=== PATIENT | male | born 1965 | race Caucasian/White ===

== ENCOUNTER 2017-11-07 23:04 | Inpatient (IN) | payer BC, MEDICAID ==
[~2017-11-07] VITALS: Ht 185.4 cm; Wt 134.0 kg
[~2017-11-07 23:04] MED LIST: CARI350T29; ESOM10SU; FLUT1DIS22; IBUP-727; LAMO100T83; MONT10TA21; ZOLP10TA; [UNRECOGNIZED DRUG - CODE]
[2017-11-07] MEDS ORDERED: SODIUM CHLORIDE 0.9% 1L BAG IV* STA (23:17)
[2017-11-07] MEDS ORDERED: ACETAMINOPHEN 500 MG TAB PO STA (23:19)
[2017-11-07 23:53] LABS: BASOPHILS % 0.6 % (0.0-2.0); EOSINOPHILS % 0.6 % (0.0-7.0); HEMATOCRIT 38.8 % (42.0-52.0); HEMOGLOBIN 12.6 g/dl (14.0-18.0); LYMPHOCYTES # 0.6 10^3/ul (0.8-2.9); LYMPHOCYTES % 12.5 % (15.0-51.0); MEAN CORPUSCULAR HEMOGLOBIN 29.5 pg (29.0-33.0); MEAN CORPUSCULAR HGB CONC 32.5 g/dl (32.0-37.0); MEAN CORPUSCULAR VOLUME 90.9 fl (82.0-101.0); MEAN PLATELET VOLUME 10.3 fl (7.4-10.4); MONOCYTE # 0.9 10^3/ul (0.3-0.9); MONOCYTES % 19.1 % (0.0-11.0); NEUTROPHIL # 3.3 10^3/ul (1.6-7.5); PLATELET COUNT 158 10^3/UL (140-415); RED BLOOD COUNT 4.27 10^6/ul (4.70-6.10); RED CELL DISTRIBUTION WIDTH 12.6 % (11.5-14.5); WHITE BLOOD COUNT 4.9 10^3/ul (4.8-10.8)
[2017-11-08] VITALS (11 sets, daily range): BP systolic 95–127; BP diastolic 62–83; PULSE 102–145; RESP 20–21; TEMP 99.3; Ht 185.4 cm; Wt 134.0 kg
[2017-11-08 00:20] LABS: ALANINE AMINOTRANSFERASE 32 IU/L (13-69); ALBUMIN 3.8 g/dl (3.3-4.9); ALBUMIN/GLOBULIN RATIO 1.35; ALKALINE PHOSPHATASE 85 IU/L (42-121); ANION GAP 16 (8-16); ASPARTATE AMINO TRANSFERASE 22 IU/L (15-46); BILIRUBIN,INDIRECT 0.6 mg/dl (0-1.1); BILIRUBIN,TOTAL 0.6 mg/dl (0.2-1.3); BLOOD UREA NITROGEN 19 mg/dl (7-20); CALCIUM 8.6 mg/dl (8.4-10.2); CARBON DIOXIDE 25 mmol/L (21-31); CHLORIDE 103 mmol/L (97-110); CREATININE 0.98 mg/dl (0.61-1.24); GLUCOSE 122 mg/dl (70-220); POTASSIUM 4.2 mmol/L (3.5-5.1); SODIUM 140 mmol/L (135-144); TOTAL PROTEIN 6.6 g/dl (6.1-8.1)
[2017-11-08 00:43] LABS: TROPONIN-I < 0.012 ng/ml (0.00-0.12)
[2017-11-08 00:47] LABS: INR 1.04; PROTIME 13.7 Sec (11.9-14.9); PT RATIO 1.1
[2017-11-08 00:48] LABS: PARTIAL THROMBOPLASTIN TIME 30.3 Sec (25.0-35.0)
--- NOTE | 2017-11-08 01:03 | RADRPT ---
PROCEDURE: XR Chest. CLINICAL INDICATION: Shortness of breath. TECHNIQUE: AP Portable chest. COMPARISON: No pertinent prior examinations were submitted for comparison. FINDINGS: The cardiomediastinal silhouette is normal. The lungs are clear. The osseous structures are unrema rkable. IMPRESSION: No acute findings. RPTAT: HIKT .Edward Maxwell MD, MD Date Time Electronically viewed and signed by .Edward Maxwell MD, MD on 11/08/2017 01:03 .T/
[2017-11-08 02:10] LABS: ADD UMIC YES; UR ASCORBIC ACID NEGATIVE (NEGATIVE); UR BILIRUBIN (Dip) NEGATIVE (NEGATIVE); UR BLOOD (Dip) 1+ mg/dL (NEGATIVE); UR CLARITY CLEAR (CLEAR); UR COLOR YELLOW (YELLOW); UR GLUCOSE (Dip) NEGATIVE (NEGATIVE); UR KETONES (Dip) TRACE mg/dL (NEGATIVE); UR LEUKOCYTE ESTERASE (Dip) NEGATIVE Leu/ul (NEGATIVE); UR NITRITE (Dip) NEGATIVE (NEGATIVE); UR RBC 1 /HPF (0-5); UR SPECIFIC GRAVITY (Dip) 1.019 (1.003-1.030); UR TOTAL PROTEIN (Dip) NEGATIVE (NEGATIVE); UR UROBILINOGEN (Dip) NEGATIVE (NEGATIVE)
[2017-11-08] MEDS ORDERED: PIPER-TAZO 3.375 GM IV (PMX) 50 ML IV ONE (02:30)
[2017-11-08] MEDS ORDERED: BISACODYL (EC) 5 MG TAB PO PRN (02:30)
[2017-11-08] MEDS ORDERED: ACETAMINOPHEN 325 MG TAB PO PRN (02:30)
[2017-11-08] MEDS ORDERED: NACL 0.9% 3 ML SYG IV SCH (02:30)
[2017-11-08] MEDS ORDERED: DOCUSATE SODIUM 100 MG CAP PO PRN (02:30)
[2017-11-08] MEDS ORDERED: ONDANSETRON 4 MG TAB PO PRN (02:30)
[2017-11-08] MEDS ORDERED: NITROGLYCERIN (SL) 0.4 MG TAB SL PRN (02:30)
--- NOTE | 2017-11-08 02:55 | ERD ---
ER Documentation Chief Complaint Chief Complaint pt reports cough, fever for a couple of days HPI This is a 52-year-old male initially brought in by ambulance for cough and fever for a couple of days. Cough is mildly productive. Found to be in atrial fibrillation with rapid ventricular response. Patient has history of. Denies chest pain. Denies nausea vomiting fevers or chills. Denies diaphoresis. Denies any other current complaints. Patient states possible noncompliance with his medication regimen as he does not remember when it is at this time. ROS All systems reviewed and are negative except as per history of present illness. Medications Home Meds Reported Medications Fluticasone/Salmeterol (Advair 100-50 Diskus) 1 Disk W/Dev Disk.w.dev 05/06/11 Esomeprazole Mag Trihydrate (Nexium Packet) 10 Mg Suspdr.pkt 05/06/11 Carisoprodol* (Carisoprodol*) 350 Mg Tablet 05/06/11 Ibuprofen (Motrin) 600 Mg Tablet 05/06/11 Zolpidem Tartrate* (Ambien*) 10 Mg Tablet 05/06/11 Lamotrigine* (Lamictal*) 100 Mg Tablet 05/06/11 Montelukast Sodium* (Singulair*) 10 Mg Tablet 05/06/11 Hydrocodone Bit/Acetaminophen (Hydrocodone-Apap 10-750 Tablet) 1 Tab Tablet 05/06/11 Allergies Allergies: Coded Allergies: No Known Drug Allergy (Verified Allergy, Mild, 05/06/11) PMhx/Soc History of Surgery: No (eye surgeries) Anesthesia Reaction: No Hx Neurological Disorder: No Hx Respiratory Disorders: Yes (ASTHMA) Hx Cardiac Disorders: Yes (HTN) Hx Psychiatric Problems: No Hx Miscellaneous Medical Probl: Yes Hx Alcohol Use: No Hx Substance Use: No Hx Tobacco Use: No Smoking Status: Never smoker Physical Exam Vitals Vital Signs Date Time Temp Pulse Resp B/P Pulse Ox O2 Delivery O2 Flow Rate FiO2 11/08/17 01:29 98.9 138 20 100/79 96 Nasal Cannula 2.0 11/08/17 00:35 98.7 124 21 107/74 98 Nasal Cannula 2.0 11/07/17 23:44 136 16 120/77 97 Nasal Cannula 2.0 11/07/17 23:42 Nasal Cannula 2 11/07/17 23:14 101.7 60 24 132/64 95 Physical Exam Const: [] Head: Atraumatic Eyes: Normal Conjunctiva ENT: Normal External Ears, Nose and Mouth. Neck: Full range of motion..~ No meningismus. Resp: Clear to auscultation bilaterally Cardio: Regular rate and rhythm, no murmurs Abd: Soft, non tender, non distended. Normal bowel sounds Skin: No petechiae or rashes Back: No midline or flank tenderness Ext: No cyanosis, or edema Neur: Awake and alert Psych: Normal Mood and Affect Result Diagram: 11/07/17 2330 11/07/17 233 Results 24 hrs Laboratory Tests Test 11/07/17 23:30 11/08/17 01:25 White Blood Count 4.910^3/ul Red Blood Count 4.2710^6/ul Hemoglobin 12.6g/dl Hematocrit 38.8% Mean Corpuscular Volume 90.9fl Mean Corpuscular Hemoglobin 29.5pg Mean Corpuscular Hemoglobin Concent 32.5g/dl Red Cell Distribution Width 12.6% Platelet Count 47509^3/UL Mean Platelet Volume 10.3fl Neutrophils % 67.0% Lymphocytes % 12.5% Monocytes % 19.1% Eosinophils % 0.6% Basophils % 0.6% Nucleated Red Blood Cells % 0.0/100WBC Neutrophils # 3.310^3/ul Lymphocytes # 0.610^3/ul Monocytes # 0.910^3/ul Eosinophils # 0.010^3/ul Basophils # 0.010^3/ul Nucleated Red Blood Cells # 0.010^3/ul Prothrombin Time 13.7Sec Prothrombin Time Ratio 1.1 INR International Normalized Ratio 1.04 Activated Partial Thromboplast Time 30.3Sec Sodium Level 140mmol/L Potassium Level 4.2mmol/L Chloride Level 103mmol/L Carbon Dioxide Level 25mmol/L Anion Gap 16 Blood Urea Nitrogen 19mg/dl Creatinine 0.98mg/dl Glucose Level 122mg/dl Lactic Acid Level 1.6mmol/L Calcium Level 8.6mg/dl Total Bilirubin 0.6mg/dl Direct Bilirubin 0.00mg/dl Indirect Bilirubin 0.6mg/dl Aspartate Amino Transf (AST/SGOT) 22IU/L Alanine Aminotransferase (ALT/SGPT) 32IU/L Alkaline Phosphatase 85IU/L Troponin I < 0.012ng/ml Total Protein 6.6g/dl Albumin 3.8g/dl Globulin 2.80g/dl Albumin/Globulin Ratio 1.35 Urine Color YELLOW Urine Clarity CLEAR Urine pH 6.0 Urine Specific [place] 1.019 Urine Ketones TRACEmg/dL Urine Nitrite NEGATIVEmg/dL Urine Bilirubin NEGATIVEmg/dL Urine Urobilinogen NEGATIVEmg/dL Urine Leukocyte Esterase NEGATIVELeu/ul Urine Microscopic RBC 1/HPF Urine Microscopic WBC 0/HPF Urine Hemoglobin 1+mg/dL Urine Glucose NEGATIVEmg/dL Urine Total Protein NEGATIVEmg/dl Current Medications Medications (Trade) Dose Ordered Sig/Chacho Route PRN Reason Start Time Stop Time Status Last Admin Dose Admin Sodium Chloride (NS) 4,150 ml BOLUS OVER 2 HOURS STAT IV* 11/07/17 23:17 11/07/17 23:18 DC 11/07/17 23:29 Acetaminophen (Tylenol Tab) 1,000 mg ONCE STAT PO 11/07/17 23:19 11/07/17 23:21 DC 11/07/17 23:29 Diltiazem HCl (Cardizem Iv) 20 mg ONCE ONCE IV 11/08/17 00:00 11/08/17 00:01 DC 11/07/17 23:37 IV Flush (NS 3 ml) 3 ml PER PROTOCOL IV 11/08/17 02:30 Ondansetron HCl (Zofran Tab) 4 mg Q6H PRN PO NAUSEA AND/OR VOMITING 11/08/17 02:30 Nitroglycerin (Nitroglycerin (Sl Tab) 0.4 Mg) 1 tab Q5M PRN SL CHEST PAIN 11/08/17 02:30 Acetaminophen (Tylenol Tab) 650 mg Q6H PRN PO PAIN LEVEL 1-3 OR FEVER 11/08/17 02:30 Docusate Sodium (Colace) 100 mg Q12H PRN PO CONSTIPATION 11/08/17 02:30 Bisacodyl (Dulcolax) 5 mg DAILY PRN PO CONSTIPATION 11/08/17 02:30 Enoxaparin Sodium 40 mg 40 mg DAILY SC 11/08/17 09:00 Piperacillin Sod/ Tazobactam Sod (Zosyn 3.375gm/ 50 ml (Pmx)) 50 ml @ 100 mls/hr ONCE ONCE IV 11/08/17 02:30 11/08/17 02:59 Hydrocodone Bit/ Homatropine Methylb (Hycodan Liquid) 5 ml ONCE ONCE PO 11/08/17 03:00 11/08/17 03:01 Procedures/MDM EKG: Rate/Rhythm: Variable rate, variable intervals QRS, ST, T-waves: [No changes consistent w/ acute ischemia] Impression: [No evidence of ischemia or arrhythmia] Pression: Atrial fibrillation with rapid ventricular response Chest X-ray 1V Interpreted by me: Soft Tissue: No acute abnormalities Bones: No acute abnormalities Mediastinum/Cardiac Silhouette/Lungs: [No acute abnormalities] Critical Care: Time: 45 minutes Treatments/Evaluations: Close monitoring and treatment of unstable vital signs, cardiorespiratory, and neurologic status, while maintaining tight balance of fluid, respiratory, and cardiac interventions. This time is independent of any separately billable procedural time Patient's symptoms are concerning for cardiac cause will require inpatient workup and continuous monitoring. Further w/u for ischemia, arrhythmia, PE or dissection will be deferred to the inpatient team. Accepting Care Team: Current data and ongoing care discussed. Time: 2 AM Primary Provider: Dr. Alvarez Consulting: [XOXOXO] Outstanding Data: none Departure Diagnosis: Primary Impression: Atrial fibrillation with RVR Condition: Serious KAE HERRERA Nov 08, 2017 02:55
[2017-11-08] MEDS ORDERED: HYDROCODONE/HOMATROPINE 5ML CUP PO ONE ×2 (03:00→06:00)
[2017-11-08] MEDS ORDERED: DILTIAZEM 25 MG INJ IV ONE ×2 (03:00)
[2017-11-08 03:38] LABS: CREATINE KINASE 388 IU/L (23-200)
[2017-11-08 03:59] LABS: CK-MB 1.11 ng/ml (0.0-2.4); TROPONIN-I < 0.012 ng/ml (0.00-0.12)
[2017-11-08] MEDS ORDERED: LEVALBUTEROL (NEB) 1.25 MG/0.5 ML AMP HHN ONE ×2 (05:00→06:00)
[2017-11-08] MEDS ORDERED: DIGOXIN 500 MCG INJ IV ONE (05:00)
[2017-11-08] MEDS ORDERED: METHYLPREDNISOLONE 125 MG INJ IV ONE (05:30)
[2017-11-08 06:13] LABS: BASOPHILS % 0.6 % (0.0-2.0); EOSINOPHILS % 0.3 % (0.0-7.0); HEMATOCRIT 36.1 % (42.0-52.0); HEMOGLOBIN 11.7 g/dl (14.0-18.0); LYMPHOCYTES # 0.7 10^3/ul (0.8-2.9); LYMPHOCYTES % 22.2 % (15.0-51.0); MEAN CORPUSCULAR HEMOGLOBIN 30.1 pg (29.0-33.0); MEAN CORPUSCULAR HGB CONC 32.4 g/dl (32.0-37.0); MEAN CORPUSCULAR VOLUME 92.8 fl (82.0-101.0); MEAN PLATELET VOLUME 10.4 fl (7.4-10.4); MONOCYTE # 0.6 10^3/ul (0.3-0.9); MONOCYTES % 18.8 % (0.0-11.0); NEUTROPHIL # 1.9 10^3/ul (1.6-7.5); NEUTROPHILS % 57.8 % (39.0-77.0); PLATELET COUNT 125 10^3/UL (140-415); RED BLOOD COUNT 3.89 10^6/ul (4.70-6.10); RED CELL DISTRIBUTION WIDTH 12.8 % (11.5-14.5); WHITE BLOOD COUNT 3.3 10^3/ul (4.8-10.8)
[2017-11-08] MEDS ORDERED: KETOROLAC 30 MG INJ IV STA (06:55)
[2017-11-08] MEDS ORDERED: CARI350T29 PO (07:07)
[2017-11-08] MEDS ORDERED: LAMO100T PO (07:08)
[2017-11-08] MEDS ORDERED: HYDR-902 PO (07:08)
[2017-11-08] MEDS ORDERED: AMLO1CAP10 PO (07:09)
[2017-11-08] MEDS ORDERED: MELO-210 PO (07:09)
[2017-11-08] MEDS ORDERED: ALBU18HF INHALATION (07:10)
[2017-11-08 07:21] LABS: ALBUMIN 3.3 g/dl (3.3-4.9); ALBUMIN/GLOBULIN RATIO 1.37; BILIRUBIN,INDIRECT 0.5 mg/dl (0-1.1); BILIRUBIN,TOTAL 0.5 mg/dl (0.2-1.3); CALCIUM 7.6 mg/dl (8.4-10.2); CHOL/HDL RATIO 2.1 RATIO; CREATININE 0.87 mg/dl (0.61-1.24); TOTAL PROTEIN 5.7 g/dl (6.1-8.1)
[2017-11-08] MEDS ORDERED: DILTIAZEM-D5W 125MG/125ML DRIP 125 ML IV STA (07:22)
[2017-11-08 08:49] LABS: THYROID STIMULATING HORMONE 0.711 MIU/L (0.465-4.680)
[2017-11-08] MEDS: LEVALBUTEROL (NEB) 0.63 MG/3 ML AMP HHN SCH ×4 (08:54→20:01)
[2017-11-08] MEDS ORDERED: ENOXAPARIN 40 MG/0.4 ML SYG SC SCH (09:00)
[2017-11-08 09:40] LABS: CREATINE KINASE 501 IU/L (23-200)
[2017-11-08 09:57] LABS: CK-MB 1.43 ng/ml (0.0-2.4); TROPONIN-I < 0.012 ng/ml (0.00-0.12)
[2017-11-08] MEDS ORDERED: PROVENTIL HFA 6.7GM INHALER INH PRN (10:00)
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
[2017-11-08] MEDS: AMOXICILLIN/CLAV 875 MG TAB PO SCH ×2 (10:17→20:14)
--- NOTE | 2017-11-08 10:24 | QN ---
Documentation Comment Observation Note: Time: 4 hours Family Hx: Negative for diabetes Evaluation: Multiple exams showed improving symptoms and no evidence of clinical decompensation. ORALIA CHURCHILL MD Nov 08, 2017 10:24
--- NOTE | 2017-11-08 13:31 | CONS ---
DATE OF ADMISSION: 11/08/2017 DATE OF CONSULTATION: 11/08/2017 DATE OF CONSULTATION: 11/08/2017 REASON FOR CONSULTATION: Atrial fibrillation with rapid ventricular response, associated chest pain , palpitations. REQUESTING PHYSICIAN: Dr. Coffman from the hospitalist service. HISTORY OF PRESENT ILLNESS: Mr. Hernandez is a 52-year-old male with a history of hypertension, dyslip idemia, chronic back pain, who initially presented with complaints of shortness of breath and cough for the last 4-5 days. The patient initially stated he was having palpitations like his heart was j umping out of his chest. Upon arrival in the emergency department, temperature of 101.7, blood pres sure 132/64, pulse 60, respiratory rate 24, saturating 95%. The patient's labs revealed a white cou nt of 4.9, hemoglobin 12.6, platelet count of 158, sodium 140, potassium 4.2, creatinine 0.9, BUN 19 , INR of 1.0. UA negative. The patient underwent a chest x-ray revealing no acute findings. The p atient's electrocardiogram revealed atrial fibrillation with rapid ventricular response, rate of 180 , normal axis and intervals with nonspecific ST-T abnormalities diffusely. The patient was subseque ntly admitted to the floor, and since admit to the floor, he has been in a-fib in the 100-115 range. Denies ongoing chest pain. PAST MEDICAL HISTORY: As above in HPI. MEDICATIONS CURRENTLY IN HOSPITAL: Prednisone, albuterol, Lovenox, Xopenex, diltiazem. ALLERGIES: NO KNOWN DRUG ALLERGIES. SOCIAL HISTORY: No tobacco, ETOH or illicit drug use. FAMILY HISTORY: No history of sudden cardiac or early CAD. REVIEW OF SYSTEMS: As above in HPI. CONSTITUTIONAL: Positive fevers, chills. PULMONARY: Shortness of breath. CARDIOVASCULAR: Atrial fibrillation with rapid ventricular response. GASTROINTESTINAL: No vomiting. GENITOURINARY: No hematuria. MUSCULOSKELETAL: Degenerative joint disease. PSYCHIATRIC: The patient denies depression. NEUROLOGIC: No documented history of CVA. PHYSICAL EXAMINATION VITAL SIGNS: Temperature of 98.1, blood pressure most recently 113/67, pulse 114, satting 95% on 2 liters. GENERAL: The patient is alert, awake, complaining of shortness of breath, cough. NECK: JVP approximately 9 cm of water. CHEST: Fair air movement throughout, with expiratory wheezing. HEART: Irregularly irregular, I/ systolic murmur, tachycardic. ABDOMEN: Positive bowel sounds, soft. EXTREMITIES: No edema, 1+ pulses bilaterally, posterior tibial. LABORATORY DATA: As above in HPI. Most recently from today: Sodium 141, potassium 4.0, creatinine 0.8, BUN 13. Troponin negative x3. LDL 50, HDL 51, white cell count 3.3, hemoglobin 11.7, platele t count of 125. IMAGING STUDIES: As above in HPI. No further imaging studies for my review at this time. ELECTROCARDIOGRAM: As above in HPI. No further electrocardiograms for my review at this time. IMPRESSION: 1. Atrial fibrillation with rapid ventricular response. 2. Palpitations secondary to atrial fibrillation with rapid ventricular response. 3. Chest pain, possibly also related to the patient's atrial fibrillation with rapid ventricular re sponse. Will trend troponins. 4. Hypertension. 5. Dyslipidemia. 6. Upper respiratory infection. 7. Fever. RECOMMENDATIONS: 1. At this time, will maintain the patient on telemetry monitoring to follow rhythm and rate contro l closely. 2. Will cover patient with anticoagulation at this time. 3. We will start the patient on calcium channel jenniffer to improve heart rate control p.o., and giv e digoxin load. 4. Continue the patient's antibiotics and steroids and bronchodilators. 5. Check a 2D echocardiogram to further assess this patient's ejection fraction, wall motion or any major valve abnormalities, and will check the TSH to be sure subclinical hyperthyroidism is not con tributing to any bouts of tachyarrhythmia. Thank you for allowing me to take part in the care of this patient. I will continue to follow him sánchez pulido closely with you with further recommendations to be made as the patient progresses through his i npatient hospital course. Dictated By: BRAYAN GARNETT/RACHEL Conf#: [id number] DID#: [id number] CC: CIRO COFFMAN MD;*EndCC*
[2017-11-08] MEDS: DIGOXIN 500 MCG INJ IV SCH ×2 (14:10→19:34)
[2017-11-08] MEDS: DILTIAZEM 30 MG TAB PO SCH ×2 (14:10→21:11)
--- NOTE | 2017-11-08 15:06 | PN ---
Date/Time of Note Date/Time of Note DATE: 11/08/17 TIME: 15:06 Assessment/Plan VTE Prophylaxis VTE Prophylaxis Intervention: SCD's Lines/Catheters IV Catheter Type (from Nrs): Peripheral IV Assessment/Plan Chief Complaint/Hosp Course Assessment and plan 1. Atrial fibrillation with rapid ventricular response. Continues to be on Cardizem drip. Follow-up with senior ui web developer recommendations. Continue telemetry monitoring. Of note patient did have echocardiogram with ejection fraction seen at 55% with normal diastolic dysfunction. 2. Asthma with exacerbation. Continue on O2 and titrate down as tolerated. Continue bronchodilators 3. Suspect upper respiratory infection. Continue antibiotics for now. 4. Hypertension. Will monitor and provide with antihypertensives as needed. 5. Dyslipidemia. Stable at present. Will monitor. 6. Suspect psychiatric disorder. Continue on Lamictal Disposition plan: Continue Cardizem drip. monitor on telemetry. follow up with senior ui web developer otmmy Discussed plan of care with Dr. Krishnamurthy Problems: Subjective 24 Hr Interval Summary Free Text/Dictation reports no chest pain., states he has some dyspnea Exam/Review of Systems Vital Signs Vitals Vital Signs Date Time Temp Pulse Resp B/P Pulse Ox O2 Delivery O2 Flow Rate FiO2 11/08/17 13:31 3.0 32 11/08/17 13:29 122 22 96 Nasal Cannula 11/08/17 11:17 98.1 113/67 Exam Constitutional: alert, oriented Psych: nl mood/affect Head: normocephalic Eyes: nl conjunctiva Neck: non-tender, supple Respiratory: other (little wheezing ) Cardiovascular: irregular rhythm Gastrointestinal: non-tender, soft Musculoskeletal: nl extremities to inspection, nl gait and stance Neurological: TECHNICAL STAFF ASSISTANT II-XII intact, nl mental status, nl speech Results Result Diagram: 11/08/17 0538 11/08/17 0540 Results 24 hrs Laboratory Tests Test 11/07/17 23:30 11/08/17 01:25 11/08/17 02:49 11/08/17 05:38 White Blood Count 4.9 3.3 #L Red Blood Count 4.27 L 3.89 L Hemoglobin 12.6 L 11.7 L Hematocrit 38.8 L 36.1 L Mean Corpuscular Volume 90.9 92.8 Mean Corpuscular Hemoglobin 29.5 30.1 Mean Corpuscular Hemoglobin Concent 32.5 32.4 Red Cell Distribution Width 12.6 12.8 Platelet Count 158 125 #L Mean Platelet Volume 10.3 10.4 Neutrophils % 67.0 57.8 Lymphocytes % 12.5 L 22.2 Monocytes % 19.1 H 18.8 H Eosinophils % 0.6 0.3 Basophils % 0.6 0.6 Nucleated Red Blood Cells % 0.0 0.0 Neutrophils # 3.3 1.9 Lymphocytes # 0.6 L 0.7 L Monocytes # 0.9 0.6 Eosinophils # 0.0 0.0 Basophils # 0.0 0.0 Nucleated Red Blood Cells # 0.0 0.0 Prothrombin Time 13.7 Prothrombin Time Ratio 1.1 INR International Normalized Ratio 1.04 Activated Partial Thromboplast Time 30.3 Sodium Level 140 Potassium Level 4.2 Chloride Level 103 Carbon Dioxide Level 25 Anion Gap 16 Blood Urea Nitrogen 19 Creatinine 0.98 Glucose Level 122 Lactic Acid Level 1.6 1.0 1.0 Calcium Level 8.6 Total Bilirubin 0.6 Direct Bilirubin 0.00 Indirect Bilirubin 0.6 Aspartate Amino Transf (AST/SGOT) 22 Alanine Aminotransferase (ALT/SGPT) 32 Alkaline Phosphatase 85 Troponin I < 0.012 < 0.012 Total Protein 6.6 Albumin 3.8 Globulin 2.80 Albumin/Globulin Ratio 1.35 Urine Color YELLOW Urine Clarity CLEAR Urine pH 6.0 Urine Specific [place] 1.019 Urine Ketones TRACE A Urine Nitrite NEGATIVE Urine Bilirubin NEGATIVE Urine Urobilinogen NEGATIVE Urine Leukocyte Esterase NEGATIVE Urine Microscopic RBC 1 Urine Microscopic WBC 0 Urine Hemoglobin 1+ H Urine Glucose NEGATIVE Urine Total Protein NEGATIVE Creatine Kinase 388 H Creatine Kinase Index 0.3 Creatinine Kinase MB (Mass) 1.11 Hemoglobin A1c 5.6 Test 11/08/17 05:40 11/08/17 09:10 Sodium Level 141 Potassium Level 4.0 Chloride Level 108 Carbon Dioxide Level 22 Anion Gap 15 Blood Urea Nitrogen 13 Creatinine 0.87 Glucose Level 106 Calcium Level 7.6 L Magnesium Level 2.0 Total Bilirubin 0.5 Direct Bilirubin 0.00 Indirect Bilirubin 0.5 Aspartate Amino Transf (AST/SGOT) 21 Alanine Aminotransferase (ALT/SGPT) 33 Alkaline Phosphatase 79 Total Protein 5.7 L Albumin 3.3 Globulin 2.40 Albumin/Globulin Ratio 1.37 Triglycerides Level 45 Cholesterol Level 110 LDL Cholesterol, Calculated 50 HDL Cholesterol 51 Cholesterol/HDL Ratio 2.1 Thyroid Stimulating Hormone (TSH) 0.684 Creatine Kinase 501 H Creatine Kinase Index 0.3 Creatinine Kinase MB (Mass) 1.43 Troponin I < 0.012 Medications Medications Current Medications Ondansetron HCl (Zofran Tab) 4 mg Q6H PRN PO NAUSEA AND/OR VOMITING; Start at 02:30 Nitroglycerin (Nitroglycerin (Sl Tab) 0.4 Mg) 1 tab Q5M PRN SL CHEST PAIN; Start 11/08/17 at 02:30 Acetaminophen (Tylenol Tab) 650 mg Q6H PRN PO PAIN LEVEL 1-3 OR FEVER; Start 11/08/17 at 02:30 Docusate Sodium (Colace) 100 mg Q12H PRN PO CONSTIPATION; Start 11/08/17 at 02 :30 Bisacodyl (Dulcolax) 5 mg DAILY PRN PO CONSTIPATION; Start 11/08/17 at 02:30 Amoxicillin/ Clavulanate Potassium (Augmentin) 875 mg BID PO Last administered on 11/08/17 10:17; Admin Dose 875 MG; Start 11/08/17 at 09:00 Prednisone (Prednisone) 60 mg DAILY PO ; Start 11/09/17 at 09:00 Albuterol (Proventil (O.r. Use Only)) 2 puff Q6H PRN INH SHORTNESS OF BREATH; Start 11/08/17 at 10:00 Lamotrigine (Lamictal) 225 mg QHS PO ; Start 11/08/17 at 21:00 Influenza Virus Vaccine (Fluzone) 0.5 ml ONCE ONCE IM* ; Start 11/09/17 at 09: 00; Stop 11/09/17 at 09:01 Enoxaparin Sodium (Lovenox) 100 mg Q12 SC ; Start 11/08/17 at 21:00 Diltiazem HCl (Cardizem) 30 mg Q8 PO Last administered on 11/08/17 14:10; Admin Dose 30 MG; Start 11/08/17 at 14:00 Digoxin (Digoxin) 250 mcg Q6H IV Last administered on 11/08/17 14:10; Admin Dose 250 MCG; Start 11/08/17 at 13:30; Stop 11/09/17 at 01:31 SANDIP KANG Nov 08, 2017 15:06
--- NOTE | 2017-11-08 15:07 | RADRPT ---
Echocardiogram Report Patient Name: CHEO DALY Gender: Male Date: 1965 Study Date: 08-Nov-2017 Meter/Relay Craftsman: OLIVER Location: [id number] Ref. Physician: CIRO COFFMAN Quality: Good Procedures: Transthoracic echocardiogram with complete 2D, M-Mode, and doppler examination. Indications: Atrial Fibrillation. 2D/M Mode Doppler Measurement Value Normal Ranges Measurement Value Normal Ranges AoR Diam MM 3.8 cm LULI Vmax 2.4 cm2 ACS MM 2.3 cm LULI VTI 2.4 cm2 LA/Ao MM 0.9 AV Mean Elvis 1.2 m/sec LA Dimen MM 3.6 cm AV Mean PG 6.5 mmHg LVIDd 2D 5.4 3.5 - 5.6 cm AV Peak Elvis 1.6 m/sec LVIDs 2D 3.7 2.1 - 4.1 cm AV Peak PG 9.6 mmHg LVPWd 2D 1.1 0.6 - 1.1 cm AV VTI 27.9 cm IVSd 2D 1.1 0.6 - 1.1 cm LVOT Peak Elvis 1.1 m/sec AoR Diam 2D 3.8 2.0 - 3.7 cm LVOT Peak PG 4.6 mmHg EDV 2D 143.6 cm3 MV E Peak Elvis 1.4 m/sec ESV 2D 50.1 cm3 MV A Peak Elvis 0.4 m/sec EF 2D 60.0 50.0 - 65.0 % MV E/A 3.4 LVOT Diam 2.1 cm MV Decel Time 136 msec MV Decel [place] 10 MV E/A 3.4 TR Peak Elvis 2.3 m/sec TR Peak PG 21.7 mmHg RVSP 30.0 mmHg RA Pressure 8.0 Findings Left Ventricle: Normal left ventricular systolic function. Normal left ventricular cavity size. Left ventricular wall thickness upper limits of normal. Ejection fraction is visually estimated at 55 %. Abnormal Diastolic Function. Right Ventricle: Normal right ventricular size. Normal right ventricular systolic function. Left Atrium: There is mild enlargement of left atrium. Right Atrium: The right atrium is normal in size. Mitral Valve: Normal appearance of the mitral valve. There is trace to mild mitral valve regurgitation. Aortic Valve: Normal appearance of the aortic valve. No significant aortic stenosis or insufficiency. Tricuspid Valve: Normal appearance of the tricuspid valve. Estimated peak PA systolic pressure 30 mmHg. There is trace tricuspid regurgitation. Pericardium: Normal pericardium with no significant pericardial effusion. Aorta: Normal aortic root. IVC: Dilated IVC with respiratory collapse consistent with elevated right atrial pressure. Conclusions 1.Normal left ventricular systolic function. Normal left ventricular cavity size. Left ventricular wall thickness upper limits of normal. Ejection fraction is visually estimated at 55 %. Abnormal Diastolic Function. 2.There is mild enlargement of left atrium. 3.Normal appearance of the mitral valve. There is trace to mild mitral valve regurgitation. 4.Normal appearance of the tricuspid valve. Estimated peak PA systolic pressure 30 mmHg. There is trace tricuspid regurgitation. Electronically Signed By: Salazar Marc 08-Nov-2017 15:07:02 0800 Patient Name: CHEO DALY Study Date: 08-Nov-2017 [id number]
[2017-11-08] MEDS ORDERED: ALBUTEROL HFA 8 GM INHALER INH PRN ×2 (18:00)
[2017-11-08] MEDS: PROMETHAZINE/CODEINE 5ML CUP PO PRN (18:38)
[2017-11-08] MEDS: ENOXAPARIN 100 MG/ML SYG SC SCH (20:17)
[2017-11-08] MEDS: LAMOTRIGINE 100 MG TAB PO SCH (21:12)
[2017-11-08] MEDS: DILTIAZEM-D5W 125MG/125ML DRIP 125 ML IV SCH (23:58)
[2017-11-09] VITALS (15 sets, daily range): BP systolic 90–120; BP diastolic 54–89; PULSE 91–142; RESP 18–21
[2017-11-09] MEDS: PROMETHAZINE/CODEINE 5ML CUP PO PRN ×5 (00:08→21:03)
[2017-11-09] MEDS: LEVALBUTEROL (NEB) 0.63 MG/3 ML AMP HHN SCH ×6 (01:00→20:03)
[2017-11-09] MEDS: morphine 2 MG INJ IV PRN ×4 (01:10→23:44)
[2017-11-09] MEDS: DIGOXIN 500 MCG INJ IV SCH (01:30)
[2017-11-09] MEDS: DILTIAZEM 30 MG TAB PO SCH ×3 (05:16→21:01)
[2017-11-09] MEDS ORDERED: INFLUENZA VIRUS VACCINE 0.5 ML SYG IM* ONE (09:00)
[2017-11-09 09:10] LABS: BASOPHILS % 0.2 % (0.0-2.0); HEMATOCRIT 37.5 % (42.0-52.0); LYMPHOCYTES # 0.8 10^3/ul (0.8-2.9); LYMPHOCYTES % 17.5 % (15.0-51.0); MEAN CORPUSCULAR HEMOGLOBIN 29.3 pg (29.0-33.0); MEAN CORPUSCULAR VOLUME 91.7 fl (82.0-101.0); MEAN PLATELET VOLUME 9.9 fl (7.4-10.4); MONOCYTE # 0.7 10^3/ul (0.3-0.9); MONOCYTES % 15.7 % (0.0-11.0); NEUTROPHIL # 2.9 10^3/ul (1.6-7.5); NEUTROPHILS % 66.1 % (39.0-77.0); PLATELET COUNT 155 10^3/UL (140-415); RED BLOOD COUNT 4.09 10^6/ul (4.70-6.10); RED CELL DISTRIBUTION WIDTH 12.7 % (11.5-14.5); WHITE BLOOD COUNT 4.4 10^3/ul (4.8-10.8)
[2017-11-09] MEDS: AMOXICILLIN/CLAV 875 MG TAB PO SCH ×2 (09:24→21:00)
[2017-11-09] MEDS: predniSONE 20 MG TAB PO SCH (09:24)
[2017-11-09] MEDS: DILTIAZEM-D5W 125MG/125ML DRIP 125 ML IV SCH ×2 (09:25→16:24)
[2017-11-09] MEDS: ENOXAPARIN 100 MG/ML SYG SC SCH ×2 (09:28→21:02)
[2017-11-09 09:40] LABS: CALCIUM 8.8 mg/dl (8.4-10.2); CREATININE 0.83 mg/dl (0.61-1.24); POTASSIUM 3.9 mmol/L (3.5-5.1)
[2017-11-09 09:50] LABS: CHOL/HDL RATIO 2.3 RATIO
--- NOTE | 2017-11-09 11:04 | CONS ---
Date/Time of Note Date/Time of Note DATE: 11/09/17 TIME: 11:03 Assessment/Plan Assessment/Plan Additional Assessment/Plan 1. Atrial fibrillation with rapid ventricular response- rate much better now, con't Med optimization. 2. Palpitations secondary to atrial fibrillation with rapid ventricular response- improved with therapy. 3. Chest pain, possibly also related to the patient's atrial fibrillation with rapid ventricular response. Will trend troponins- stable. 4. Hypertension- well Rx, con't diuresis. 5. Dyslipidemia. 6. Upper respiratory infection- on anti-Bx, better now. 7. Fever. Consultation Date/Type/Reason Admit Date/Time Nov 08, 2017 at 01:52 Initial Consult Date 24 HR Interval Summary Free Text/Dictation Better overall- good urine output - rate controlled - will monitor now. ROS: No fever, no chills, no nausea, no vomiting, no diarrhea/constipation No recent weight changes No chest pain, no PND, no orthopnea + SOB No dizziness, blurred vision No thirst, no heat or cold intolerance Exam/Review of Systems Vital Signs Vitals Vital Signs Date Time Temp Pulse Resp B/P Pulse Ox O2 Delivery O2 Flow Rate FiO2 11/09/17 09:12 96 24 97 Nasal Cannula 3.0 11/09/17 07:15 98.0 110/77 11/09/17 04:52 21 Intake and Output 11/08/17 11/08/17 11/09/17 15:00 23:00 07:00 Intake Total 25 ml 910 ml 495 ml Output Total 1600 ml Balance -1575 ml 910 ml 495 ml Exam General: WN/WD/NAD, AOx 3 HEENT: Unicetric/atraumatic/EOMI (follows commands) NECK: JVD elevated, no thyromegaly Lymph: no lymphadenopathy HEART: irregular with no S3, II/ systolic murmur at apex LUNGS: Coarse sounds ABD: soft, NT, ND, +BS : Intact Neuro: non focal SKIN: chronic changes EXT: trace edema Results Result Diagram: 11/09/17 0842 11/09/17 0842 Results 24 hrs Laboratory Tests Test 11/08/17 17:34 11/09/17 00:34 11/09/17 08:42 Troponin I < 0.012 < 0.012 White Blood Count 4.4 #L Red Blood Count 4.09 L Hemoglobin 12.0 L Hematocrit 37.5 L Mean Corpuscular Volume 91.7 Mean Corpuscular Hemoglobin 29.3 Mean Corpuscular Hemoglobin Concent 32.0 Red Cell Distribution Width 12.7 Platelet Count 155 # Mean Platelet Volume 9.9 Neutrophils % 66.1 Lymphocytes % 17.5 Monocytes % 15.7 H Eosinophils % 0.0 Basophils % 0.2 Nucleated Red Blood Cells % 0.0 Neutrophils # 2.9 Lymphocytes # 0.8 Monocytes # 0.7 Eosinophils # 0.0 Basophils # 0.0 Nucleated Red Blood Cells # 0.0 Sodium Level 141 Potassium Level 3.9 Chloride Level 106 Carbon Dioxide Level 26 Anion Gap 13 Blood Urea Nitrogen 10 Creatinine 0.83 Glucose Level 116 Calcium Level 8.8 Triglycerides Level 73 Cholesterol Level 118 LDL Cholesterol, Calculated 53 HDL Cholesterol 50 Cholesterol/HDL Ratio 2.3 Medications Medications Current Medications Ondansetron HCl (Zofran Tab) 4 mg Q6H PRN PO NAUSEA AND/OR VOMITING; Start at 02:30 Nitroglycerin (Nitroglycerin (Sl Tab) 0.4 Mg) 1 tab Q5M PRN SL CHEST PAIN Last administered on 11/08/17 23:57; Admin Dose 1 TAB; Start 11/08/17 at 02:30 Acetaminophen (Tylenol Tab) 650 mg Q6H PRN PO PAIN LEVEL 1-3 OR FEVER; Start 11/08/17 at 02:30 Docusate Sodium (Colace) 100 mg Q12H PRN PO CONSTIPATION; Start 11/08/17 at 02 :30 Bisacodyl (Dulcolax) 5 mg DAILY PRN PO CONSTIPATION; Start 11/08/17 at 02:30 Amoxicillin/ Clavulanate Potassium (Augmentin) 875 mg BID PO Last administered on 11/09/17 09:24; Admin Dose 875 MG; Start 11/08/17 at 09:00 Prednisone (Prednisone) 60 mg DAILY PO Last administered on 11/09/17 09:24; Admin Dose 60 MG; Start 11/09/17 at 09:00 Lamotrigine (Lamictal) 225 mg QHS PO Last administered on 11/08/17 21:12; Admin Dose 225 MG; Start 11/08/17 at 21:00 Enoxaparin Sodium (Lovenox) 100 mg Q12 SC Last administered on 11/09/17 09:28 ; Admin Dose 100 MG; Start 11/08/17 at 21:00 Diltiazem HCl (Cardizem) 30 mg Q8 PO Last administered on 11/09/17 05:16; Admin Dose 30 MG; Start 11/08/17 at 14:00 Promethazine HCl/ Codeine 5 ml 5 ml Q4H PRN PO COUGH Last administered on 11/09 09:31; Admin Dose 5 ML; Start 11/08/17 at 18:00 Diltiazem HCl (Cardizem-D5W 125 Mg/125 ml Drip) 125 ml @ 15 mls/hr TITRATE IV Last administered on 11/09/17 09:25; Admin Dose 15 MLS/HR; Start 11/09/17 at 00:00 Morphine Sulfate (morphine) 2 mg Q4H PRN IV PAIN Last administered on 09:32; Admin Dose 2 MG; Start 11/09/17 at 00:00 MAYKEL NEAL MD Nov 09, 2017 11:04
[2017-11-09] MEDS ORDERED: morphine 2 MG INJ IV STA (12:45)
[2017-11-09] MEDS: SALMETEROL/FLUTICASONE 250/50 INHA INH SCH ×2 (13:46→21:00)
--- NOTE | 2017-11-09 16:07 | PN ---
Date/Time of Note Date/Time of Note DATE: 11/09/17 TIME: 16:02 Assessment/Plan VTE Prophylaxis VTE Prophylaxis Intervention: SCD's Lines/Catheters IV Catheter Type (from [facility]): [place] Assessment/Plan Chief Complaint/Hosp Course Assessment and plan 1. Atrial fibrillation with rapid ventricular response. Continues to be on Cardizem drip. Follow-up with marquetry worker recommendations. Continue telemetry monitoring. Of note patient did have echocardiogram with ejection fraction seen at 55% with normal diastolic dysfunction. 2. Asthma with exacerbation. Continue on O2 and titrate down as tolerated. Continue bronchodilators 3. Suspect upper respiratory infection. Continue antibiotics for now. 4. Hypertension. Will monitor and provide with antihypertensives as needed. 5. Dyslipidemia. Stable at present. Will monitor. 6. Suspect psychiatric disorder. Continue on Lamictal Disposition plan: Continue Cardizem drip. Transition to oral per marquetry worker. Titrate off O2 as tolerated. Monitor for clinical improvement of respiratory status. Discussed plan of care with Dr. Krishnamurthy Problems: Subjective 24 Hr Interval Summary Free Text/Dictation no s/s of distress. little anxious Exam/Review of Systems Vital Signs Vitals Vital Signs Date Time Temp Pulse Resp B/P Pulse Ox O2 Delivery O2 Flow Rate FiO2 11/09/17 15:43 Nasal Cannula 3.0 11/09/17 15:25 98.1 79 19 115/69 92 11/09/17 04:52 21 Intake and Output 11/08/17 11/08/17 11/09/17 15:00 23:00 07:00 Intake Total 25 ml 910 ml 495 ml Output Total 1600 ml Balance -1575 ml 910 ml 495 ml Exam Reports less shortness of breath. Reports having reproducible chest pain on palpation Constitutional: alert, oriented Psych: nl mood/affect Head: normocephalic Eyes: nl conjunctiva Neck: non-tender, supple Respiratory: clear to auscultation, normal air movement Cardiovascular: irregular rhythm Gastrointestinal: soft Musculoskeletal: nl extremities to inspection Neurological: ASSISTANT TO THE CEO II-XII intact, nl mental status, nl speech Results Result Diagram: 11/09/17 0842 11/09/17 0842 Results 24 hrs Laboratory Tests Test 11/08/17 17:34 11/09/17 00:34 11/09/17 08:42 Troponin I < 0.012 < 0.012 White Blood Count 4.4 #L Red Blood Count 4.09 L Hemoglobin 12.0 L Hematocrit 37.5 L Mean Corpuscular Volume 91.7 Mean Corpuscular Hemoglobin 29.3 Mean Corpuscular Hemoglobin Concent 32.0 Red Cell Distribution Width 12.7 Platelet Count 155 # Mean Platelet Volume 9.9 Neutrophils % 66.1 Lymphocytes % 17.5 Monocytes % 15.7 H Eosinophils % 0.0 Basophils % 0.2 Nucleated Red Blood Cells % 0.0 Neutrophils # 2.9 Lymphocytes # 0.8 Monocytes # 0.7 Eosinophils # 0.0 Basophils # 0.0 Nucleated Red Blood Cells # 0.0 Sodium Level 141 Potassium Level 3.9 Chloride Level 106 Carbon Dioxide Level 26 Anion Gap 13 Blood Urea Nitrogen 10 Creatinine 0.83 Glucose Level 116 Calcium Level 8.8 Triglycerides Level 73 Cholesterol Level 118 LDL Cholesterol, Calculated 53 HDL Cholesterol 50 Cholesterol/HDL Ratio 2.3 Medications Medications Current Medications Ondansetron HCl (Zofran Tab) 4 mg Q6H PRN PO NAUSEA AND/OR VOMITING; Start at 02:30 Nitroglycerin (Nitroglycerin (Sl Tab) 0.4 Mg) 1 tab Q5M PRN SL CHEST PAIN Last administered on 11/08/17 23:57; Admin Dose 1 TAB; Start 11/08/17 at 02:30 Acetaminophen (Tylenol Tab) 650 mg Q6H PRN PO PAIN LEVEL 1-3 OR FEVER; Start 11/08/17 at 02:30 Docusate Sodium (Colace) 100 mg Q12H PRN PO CONSTIPATION; Start 11/08/17 at 02 :30 Bisacodyl (Dulcolax) 5 mg DAILY PRN PO CONSTIPATION; Start 11/08/17 at 02:30 Amoxicillin/ Clavulanate Potassium (Augmentin) 875 mg BID PO Last administered on 11/09/17 09:24; Admin Dose 875 MG; Start 11/08/17 at 09:00 Prednisone (Prednisone) 60 mg DAILY PO Last administered on 11/09/17 09:24; Admin Dose 60 MG; Start 11/09/17 at 09:00 Lamotrigine (Lamictal) 225 mg QHS PO Last administered on 11/08/17 21:12; Admin Dose 225 MG; Start 11/08/17 at 21:00 Enoxaparin Sodium (Lovenox) 100 mg Q12 SC Last administered on 11/09/17 09:28 ; Admin Dose 100 MG; Start 11/08/17 at 21:00 Diltiazem HCl (Cardizem) 30 mg Q8 PO Last administered on 11/09/17 13:47; Admin Dose 30 MG; Start 11/08/17 at 14:00 Promethazine HCl/ Codeine 5 ml 5 ml Q4H PRN PO COUGH Last administered on 11/09 09:31; Admin Dose 5 ML; Start 11/08/17 at 18:00 Diltiazem HCl (Cardizem-D5W 125 Mg/125 ml Drip) 125 ml @ 15 mls/hr TITRATE IV Last administered on 11/09/17 09:25; Admin Dose 15 MLS/HR; Start 11/09/17 at 00:00 Morphine Sulfate (morphine) 2 mg Q4H PRN IV PAIN Last administered on 09:32; Admin Dose 2 MG; Start 11/09/17 at 00:00 Salmeterol Xinafoate/ Fluticasone (Advair 250/50 Diskus) 1 inh BID INH Last administered on 11/09/17 13:46; Admin Dose 1 INH; Start 11/09/17 at 12:30 SANDIP KANG Nov 09, 2017 16:07
[2017-11-09] MEDS: LAMOTRIGINE 100 MG TAB PO SCH (21:01)
[2017-11-10] VITALS (12 sets, daily range): BP systolic 98–119; BP diastolic 55–77; PULSE 81–115; RESP 16–21
[2017-11-10] MEDS: LEVALBUTEROL (NEB) 0.63 MG/3 ML AMP HHN SCH ×6 (00:59→20:35)
[2017-11-10] MEDS: PROMETHAZINE/CODEINE 5ML CUP PO PRN ×4 (01:45→22:08)
[2017-11-10] MEDS: DILTIAZEM-D5W 125MG/125ML DRIP 125 ML IV SCH ×2 (01:45→14:19)
[2017-11-10] MEDS: DILTIAZEM 30 MG TAB PO SCH ×3 (05:17→22:08)
--- NOTE | 2017-11-10 07:17 | RADRPT ---
Vent Rate: 118 bpm RR Interval: 0 msec AL Interval: 0 msec QRS Duration: 104 msec QT Interval: 334 msec QTC Interval: 468 msec P-R-T [place]: 0 - 71 - 46 degrees Atrial fibrillation with rapid ventricular response with premature ventricular or aberrantly conducted complexes Abnormal ECG Electronically Signed By: Kp Montes De Oca [id number]
--- NOTE | 2017-11-10 07:18 | RADRPT ---
Vent Rate: 96 bpm RR Interval: 0 msec [place] Interval: 0 msec QRS Duration: 100 msec QT Interval: 352 msec QTC Interval: 444 msec P-R-T [place]: 0 - 83 - 49 degrees Atrial fibrillation Abnormal ECG Electronically Signed By: Kp Montes De Oca [id number]
[2017-11-10 08:55] LABS: BASOPHILS % 0.3 % (0.0-2.0); HEMATOCRIT 34.8 % (42.0-52.0); HEMOGLOBIN 11.6 g/dl (14.0-18.0); LYMPHOCYTES % 26.3 % (15.0-51.0); MEAN CORPUSCULAR HEMOGLOBIN 30.2 pg (29.0-33.0); MEAN CORPUSCULAR HGB CONC 33.3 g/dl (32.0-37.0); MEAN CORPUSCULAR VOLUME 90.6 fl (82.0-101.0); MEAN PLATELET VOLUME 9.8 fl (7.4-10.4); MONOCYTE # 0.6 10^3/ul (0.3-0.9); MONOCYTES % 14.6 % (0.0-11.0); NEUTROPHIL # 2.3 10^3/ul (1.6-7.5); NEUTROPHILS % 58.5 % (39.0-77.0); PLATELET COUNT 146 10^3/UL (140-415); RED BLOOD COUNT 3.84 10^6/ul (4.70-6.10); RED CELL DISTRIBUTION WIDTH 12.8 % (11.5-14.5); WHITE BLOOD COUNT 3.9 10^3/ul (4.8-10.8)
[2017-11-10] MEDS: SALMETEROL/FLUTICASONE 250/50 INHA INH SCH ×2 (08:58→20:51)
[2017-11-10] MEDS: morphine 2 MG INJ IV PRN ×3 (08:59→23:56)
[2017-11-10] MEDS: AMOXICILLIN/CLAV 875 MG TAB PO SCH ×2 (08:59→20:51)
[2017-11-10] MEDS: predniSONE 20 MG TAB PO SCH (08:59)
[2017-11-10] MEDS: ENOXAPARIN 100 MG/ML SYG SC SCH ×2 (09:05→21:03)
[2017-11-10 09:31] LABS: CALCIUM 8.4 mg/dl (8.4-10.2); CREATININE 0.85 mg/dl (0.61-1.24); POTASSIUM 3.7 mmol/L (3.5-5.1)
--- NOTE | 2017-11-10 14:38 | CONS ---
Date/Time of Note Date/Time of Note DATE: 11/10/17 TIME: 14:32 Assessment/Plan Assessment/Plan Chief Complaint/Hosp Course IMPRESSION: 1. Atrial fibrillation with rapid ventricular response. NL TSH 2. Palpitations secondary to atrial fibrillation with rapid ventricular response. 3. Chest pain, possibly also related to the patient's atrial fibrillation with rapid ventricular response.-negative trop x 3. 4. Hypertension. 5. Dyslipidemia. 6. Upper respiratory infection. 7. Fever. Recc: -Tele -serial ecg's -Continue CCB and start BB to improve HR control -will give dose IVP digoxin -wean off IV diltiazem -Continue lovenox with transition to eliquis at d/c as insurance will allow -Continue steroids/bronchodilators Problems: Consultation Date/Type/Reason Admit Date/Time Nov 08, 2017 at 01:52 Initial Consult Date 11/08/2017 Type of Consultation: cardiology Reason for Consultation AF Referring Provider: SANDIP KANG Exam/Review of Systems Vital Signs Vitals Vital Signs Date Time Temp Pulse Resp B/P Pulse Ox O2 Delivery O2 Flow Rate FiO2 11/10/17 12:02 115 11/10/17 11:55 98.8 16 100/60 91 11/10/17 08:30 Nasal Cannula 3.0 11/09/17 20:03 21 Intake and Output 11/09/17 11/09/17 11/10/17 15:00 23:00 07:00 Intake Total 30 ml 1650 ml 240 ml Balance 30 ml 1650 ml 240 ml Exam Review of Systems: CONSTITUTIONAL: No fevers, chills. PULMONARY: No sob CARDIOVASCULAR: C/O palpitations GASTROINTESTINAL: No nausea/vomiting. GENITOURINARY: No hematuria/dysuria. MUSCULOSKELETAL: No myagias/arthalgias. PSYCHIATRIC: The patient denies depression. NEUROLOGIC: No weakness Constitutional: alert, oriented Psych: no complaints Head: normocephalic ENMT: mucosa pink and moist Neck: jvd (9 cm water), supple Respiratory: clear to auscultation, diminished breath sounds Cardiovascular: irregular rhythm (tachycardic) Gastrointestinal: non-tender, soft Musculoskeletal: muscle tone (normal) Extremities: edema (none) Neurological: other (No focal deficits) Results Result Diagram: 12/20/17 0825 12/20/17 0825 Results 24 hrs Laboratory Tests Test 11/10/17 08:25 White Blood Count 3.9 L Red Blood Count 3.84 L Hemoglobin 11.6 L Hematocrit 34.8 L Mean Corpuscular Volume 90.6 Mean Corpuscular Hemoglobin 30.2 Mean Corpuscular Hemoglobin Concent 33.3 Red Cell Distribution Width 12.8 Platelet Count 146 Mean Platelet Volume 9.8 Neutrophils % 58.5 Lymphocytes % 26.3 Monocytes % 14.6 H Eosinophils % 0.0 Basophils % 0.3 Nucleated Red Blood Cells % 0.0 Neutrophils # 2.3 Lymphocytes # 1.0 Monocytes # 0.6 Eosinophils # 0.0 Basophils # 0.0 Nucleated Red Blood Cells # 0.0 Sodium Level 139 Potassium Level 3.7 Chloride Level 101 Carbon Dioxide Level 29 Anion Gap 13 Blood Urea Nitrogen 11 Creatinine 0.85 Glucose Level 107 Calcium Level 8.4 Medications Medications Current Medications Ondansetron HCl (Zofran Tab) 4 mg Q6H PRN PO NAUSEA AND/OR VOMITING; Start at 02:30 Nitroglycerin (Nitroglycerin (Sl Tab) 0.4 Mg) 1 tab Q5M PRN SL CHEST PAIN Last administered on 11/08/17 23:57; Admin Dose 1 TAB; Start 11/08/17 at 02:30 Acetaminophen (Tylenol Tab) 650 mg Q6H PRN PO PAIN LEVEL 1-3 OR FEVER Last administered on 11/10/17 12:45; Admin Dose 650 MG; Start 11/08/17 at 02:30 Docusate Sodium (Colace) 100 mg Q12H PRN PO CONSTIPATION; Start 11/08/17 at 02 :30 Bisacodyl (Dulcolax) 5 mg DAILY PRN PO CONSTIPATION; Start 11/08/17 at 02:30 Amoxicillin/ Clavulanate Potassium (Augmentin) 875 mg BID PO Last administered on 11/10/17 08:59; Admin Dose 875 MG; Start 11/08/17 at 09:00 Prednisone (Prednisone) 60 mg DAILY PO Last administered on 11/10/17 08:59; Admin Dose 60 MG; Start 11/09/17 at 09:00 Lamotrigine (Lamictal) 225 mg QHS PO Last administered on 11/09/17 21:01; Admin Dose 225 MG; Start 11/08/17 at 21:00 Enoxaparin Sodium (Lovenox) 100 mg Q12 SC Last administered on 11/10/17 09:05 ; Admin Dose 100 MG; Start 11/08/17 at 21:00 Diltiazem HCl (Cardizem) 30 mg Q8 PO Last administered on 11/10/17 05:17; Admin Dose 30 MG; Start 11/08/17 at 14:00 Promethazine HCl/ Codeine 5 ml 5 ml Q4H PRN PO COUGH Last administered on 11/10 13:37; Admin Dose 5 ML; Start 11/08/17 at 18:00 Diltiazem HCl (Cardizem-D5W 125 Mg/125 ml Drip) 125 ml @ 15 mls/hr TITRATE IV Last administered on 11/10/17 14:19; Admin Dose 15 MLS/HR; Start 11/09/17 at 00:00 Morphine Sulfate (morphine) 2 mg Q4H PRN IV PAIN Last administered on 08:59; Admin Dose 2 MG; Start 11/09/17 at 00:00 Salmeterol Xinafoate/ Fluticasone (Advair 250/50 Diskus) 1 inh BID INH Last administered on 11/10/17 08:58; Admin Dose 1 INH; Start 11/09/17 at 12:30 BRAYAN GUERRA Nov 10, 2017 14:38
[2017-11-10] MEDS ORDERED: DIGOXIN 500 MCG INJ IV ONE (15:00)
--- NOTE | 2017-11-10 15:35 | PN ---
Date/Time of Note Date/Time of Note DATE: 11/10/17 TIME: 15:33 Assessment/Plan VTE Prophylaxis VTE Prophylaxis Intervention: LMWH Lines/Catheters IV [facility]from [facility] Saline Lock Assessment/Plan Chief Complaint/Hosp Course Assessment and plan 1. Atrial fibrillation with rapid ventricular response. Continues to be on Cardizem drip. Follow-up with bottle house pumper recommendations. Continue telemetry monitoring. Of note patient did have echocardiogram with ejection fraction seen at 55% with normal diastolic dysfunction. 2. Asthma with exacerbation. Continue on O2 and titrate down as tolerated. Continue bronchodilators 3. Suspect upper respiratory infection. Continue antibiotics for now. 4. Hypertension. Will monitor and provide with antihypertensives as needed. 5. Dyslipidemia. Stable at present. Will monitor. 6. Suspect psychiatric disorder. Continue on Lamictal Disposition plan: to be weaned off cardizem. monitor on telemetry. f/u cardiology recs. d/c when medically stable Discussed plan of care with Dr. Moraes Problems: Subjective 24 Hr Interval Summary Free Text/Dictation no s/s of distress. reports less pain in chest today Exam/Review of Systems Vital Signs Vitals Vital Signs Date Time Temp Pulse Resp B/P Pulse Ox O2 Delivery O2 Flow Rate FiO2 11/10/17 15:29 98.7 63 21 119/77 93 11/10/17 08:30 Nasal Cannula 3.0 11/09/17 20:03 21 Intake and Output 11/09/17 11/09/17 11/10/17 15:00 23:00 07:00 Intake Total 30 ml 1650 ml 240 ml Balance 30 ml 1650 ml 240 ml Exam Constitutional: alert, oriented Psych: nl mood/affect Head: normocephalic Eyes: nl conjunctiva Neck: non-tender, supple Respiratory: clear to auscultation, normal air movement Cardiovascular: irregular rhythm Gastrointestinal: soft Musculoskeletal: nl extremities to inspection Neurological: 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 intact, nl mental status, nl speech Results Result Diagram: 11/10/1725 11/10/1725 Results 24 hrs Laboratory Tests Test 11/10/17 08:25 White Blood Count 3.9 L Red Blood Count 3.84 L Hemoglobin 11.6 L Hematocrit 34.8 L Mean Corpuscular Volume 90.6 Mean Corpuscular Hemoglobin 30.2 Mean Corpuscular Hemoglobin Concent 33.3 Red Cell Distribution Width 12.8 Platelet Count 146 Mean Platelet Volume 9.8 Neutrophils % 58.5 Lymphocytes % 26.3 Monocytes % 14.6 H Eosinophils % 0.0 Basophils % 0.3 Nucleated Red Blood Cells % 0.0 Neutrophils # 2.3 Lymphocytes # 1.0 Monocytes # 0.6 Eosinophils # 0.0 Basophils # 0.0 Nucleated Red Blood Cells # 0.0 Sodium Level 139 Potassium Level 3.7 Chloride Level 101 Carbon Dioxide Level 29 Anion Gap 13 Blood Urea Nitrogen 11 Creatinine 0.85 Glucose Level 107 Calcium Level 8.4 Medications Medications Current Medications Ondansetron HCl (Zofran Tab) 4 mg Q6H PRN PO NAUSEA AND/OR VOMITING; Start at 02:30 Nitroglycerin (Nitroglycerin (Sl Tab) 0.4 Mg) 1 tab Q5M PRN SL CHEST PAIN Last administered on 11/08/17 23:57; Admin Dose 1 TAB; Start 11/08/17 at 02:30 Acetaminophen (Tylenol Tab) 650 mg Q6H PRN PO PAIN LEVEL 1-3 OR FEVER Last administered on 11/10/17 12:45; Admin Dose 650 MG; Start 11/08/17 at 02:30 Docusate Sodium (Colace) 100 mg Q12H PRN PO CONSTIPATION; Start 11/08/17 at 02 :30 Bisacodyl (Dulcolax) 5 mg DAILY PRN PO CONSTIPATION; Start 11/08/17 at 02:30 Amoxicillin/ Clavulanate Potassium (Augmentin) 875 mg BID PO Last administered on 11/10/17 08:59; Admin Dose 875 MG; Start 11/08/17 at 09:00 Prednisone (Prednisone) 60 mg DAILY PO Last administered on 11/10/17 08:59; Admin Dose 60 MG; Start 11/09/17 at 09:00 Lamotrigine (Lamictal) 225 mg QHS PO Last administered on 11/09/17 21:01; Admin Dose 225 MG; Start 11/08/17 at 21:00 Enoxaparin Sodium (Lovenox) 100 mg Q12 SC Last administered on 11/10/17 09:05 ; Admin Dose 100 MG; Start 11/08/17 at 21:00 Diltiazem HCl (Cardizem) 30 mg Q8 PO Last administered on 11/10/17 05:17; Admin Dose 30 MG; Start 11/08/17 at 14:00 Promethazine HCl/ Codeine 5 ml 5 ml Q4H PRN PO COUGH Last administered on 11/10 13:37; Admin Dose 5 ML; Start 11/08/17 at 18:00 Diltiazem HCl (Cardizem-D5W 125 Mg/125 ml Drip) 125 ml @ 15 mls/hr TITRATE IV Last administered on 11/10/17 14:19; Admin Dose 15 MLS/HR; Start 11/09/17 at 00:00 Morphine Sulfate (morphine) 2 mg Q4H PRN IV PAIN Last administered on 08:59; Admin Dose 2 MG; Start 11/09/17 at 00:00 Salmeterol Xinafoate/ Fluticasone (Advair 250/50 Diskus) 1 inh BID INH Last administered on 11/10/17 08:58; Admin Dose 1 INH; Start 11/09/17 at 12:30 Atenolol (Tenormin) 25 mg BID PO ; Start 11/10/17 at 15:00 Metoprolol Tartrate (Lopressor) 5 mg Q4 PRN IV HR>110 Hold SBP<100; Start at 15:00 SANDIP KANG Nov 10, 2017 15:35
[2017-11-10] MEDS: ATENOLOL 25 MG TAB PO SCH ×2 (16:02→20:50)
[2017-11-10] MEDS: LAMOTRIGINE 100 MG TAB PO SCH (20:52)
[2017-11-11] VITALS (14 sets, daily range): BP systolic 93–118; BP diastolic 53–94; PULSE 82–143; RESP 20
[2017-11-11] MEDS: LEVALBUTEROL (NEB) 0.63 MG/3 ML AMP HHN SCH ×6 (00:12→20:32)
[2017-11-11] MEDS: DILTIAZEM 30 MG TAB PO SCH ×3 (05:29→21:23)
[2017-11-11] MEDS: PROMETHAZINE/CODEINE 5ML CUP PO PRN (05:51)
[2017-11-11 07:22] LABS: BASOPHILS % 0.5 % (0.0-2.0); HEMATOCRIT 38.9 % (42.0-52.0); HEMOGLOBIN 12.8 g/dl (14.0-18.0); LYMPHOCYTES # 1.5 10^3/ul (0.8-2.9); LYMPHOCYTES % 36.6 % (15.0-51.0); MEAN CORPUSCULAR HEMOGLOBIN 29.8 pg (29.0-33.0); MEAN CORPUSCULAR HGB CONC 32.9 g/dl (32.0-37.0); MEAN CORPUSCULAR VOLUME 90.7 fl (82.0-101.0); MEAN PLATELET VOLUME 9.4 fl (7.4-10.4); MONOCYTE # 0.6 10^3/ul (0.3-0.9); MONOCYTES % 14.4 % (0.0-11.0); NEUTROPHILS % 48.3 % (39.0-77.0); PLATELET COUNT 193 10^3/UL (140-415); RED BLOOD COUNT 4.29 10^6/ul (4.70-6.10); RED CELL DISTRIBUTION WIDTH 12.2 % (11.5-14.5); WHITE BLOOD COUNT 4.2 10^3/ul (4.8-10.8)
[2017-11-11 07:54] LABS: CREATININE 0.79 mg/dl (0.61-1.24); POTASSIUM 3.4 mmol/L (3.5-5.1)
[2017-11-11] MEDS: AMOXICILLIN/CLAV 875 MG TAB PO SCH ×2 (09:26→20:44)
[2017-11-11] MEDS: SALMETEROL/FLUTICASONE 250/50 INHA INH SCH ×2 (09:26→20:44)
[2017-11-11] MEDS: predniSONE 20 MG TAB PO SCH (09:27)
[2017-11-11] MEDS: ATENOLOL 25 MG TAB PO SCH ×2 (09:28→20:46)
[2017-11-11] MEDS: ENOXAPARIN 100 MG/ML SYG SC SCH ×2 (09:45→20:47)
[2017-11-11] MEDS: morphine 2 MG INJ IV PRN ×3 (10:50→21:32)
--- NOTE | 2017-11-11 10:54 | PN ---
Date/Time of Note Date/Time of Note DATE: 11/11/17 TIME: 10:51 Assessment/Plan VTE Prophylaxis VTE Prophylaxis Intervention: LMWH Lines/Catheters IV [facility] (from [facility] Saline Lock Assessment/Plan Chief Complaint/Hosp Course Assessment and plan 1. Atrial fibrillation with rapid ventricular response. Continues to be on Cardizem drip. . Continue telemetry monitoring. Of note patient did have echocardiogram with ejection fraction seen at 55% with normal diastolic dysfunction. Still seen with uncontrolled rate. 2. Asthma with exacerbation. Continue on O2 and titrate down as tolerated. Continue bronchodilators 3. Suspect upper respiratory infection. Continue antibiotics for now. 4. Hypertension. Will monitor and provide with antihypertensives as needed. 5. Dyslipidemia. Stable at present. Will monitor. 6. Suspect psychiatric disorder. Continue on Lamictal Disposition plan: still with uncontrolled rate. continue cardizem. monitor for improvement Discussed plan of care with Dr. Moraes Problems: Subjective 24 Hr Interval Summary Free Text/Dictation no s/s of distress. still noted with uncontrolled heart rate Exam/Review of Systems Vital Signs Vitals Vital Signs Date Time Temp Pulse Resp B/P Pulse Ox O2 Delivery O2 Flow Rate FiO2 11/11/17 08:55 21 11/11/17 08:55 97 18 97 11/11/17 08:00 98.0 107/77 11/11/17 04:12 Nasal Cannula 2.0 Intake and Output 11/10/17 11/10/17 11/11/17 15:00 23:00 07:00 Intake Total 1080 ml 1200 ml Balance 1080 ml 1200 ml Exam Constitutional: alert Psych: anxiety Head: normocephalic Respiratory: clear to auscultation, normal air movement Cardiovascular: irregular rhythm Gastrointestinal: non-tender, soft Musculoskeletal: nl extremities to inspection, nl gait and stance 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, nl mental status, nl speech Skin: nl turgor Results Result Diagram: 11/11/17 0617 11/11/17 0617 Results 24 hrs Laboratory Tests Test 11/11/17 06:17 White Blood Count 4.2 L Red Blood Count 4.29 L Hemoglobin 12.8 L Hematocrit 38.9 L Mean Corpuscular Volume 90.7 Mean Corpuscular Hemoglobin 29.8 Mean Corpuscular Hemoglobin Concent 32.9 Red Cell Distribution Width 12.2 Platelet Count 193 # Mean Platelet Volume 9.4 Neutrophils % 48.3 Lymphocytes % 36.6 Monocytes % 14.4 H Eosinophils % 0.0 Basophils % 0.5 Nucleated Red Blood Cells % 0.0 Neutrophils # 2.0 Lymphocytes # 1.5 Monocytes # 0.6 Eosinophils # 0.0 Basophils # 0.0 Nucleated Red Blood Cells # 0.0 Sodium Level 142 Potassium Level 3.4 L Chloride Level 101 Carbon Dioxide Level 29 Anion Gap 15 Blood Urea Nitrogen 12 Creatinine 0.79 Glucose Level 124 Calcium Level 9.0 Medications Medications Current Medications Ondansetron HCl (Zofran Tab) 4 mg Q6H PRN PO NAUSEA AND/OR VOMITING; Start at 02:30 Nitroglycerin (Nitroglycerin (Sl Tab) 0.4 Mg) 1 tab Q5M PRN SL CHEST PAIN Last administered on 11/08/17 23:57; Admin Dose 1 TAB; Start 11/08/17 at 02:30 Acetaminophen (Tylenol Tab) 650 mg Q6H PRN PO PAIN LEVEL 1-3 OR FEVER Last administered on 11/10/17 12:45; Admin Dose 650 MG; Start 11/08/17 at 02:30 Docusate Sodium (Colace) 100 mg Q12H PRN PO CONSTIPATION; Start 11/08/17 at 02 :30 Bisacodyl (Dulcolax) 5 mg DAILY PRN PO CONSTIPATION; Start 11/08/17 at 02:30 Amoxicillin/ Clavulanate Potassium (Augmentin) 875 mg BID PO Last administered on 11/11/17 09:26; Admin Dose 875 MG; Start 11/08/17 at 09:00 Prednisone (Prednisone) 60 mg DAILY PO Last administered on 11/11/17 09:27; Admin Dose 60 MG; Start 11/09/17 at 09:00 Lamotrigine (Lamictal) 225 mg QHS PO Last administered on 11/10/17 20:52; Admin Dose 225 MG; Start 11/08/17 at 21:00 Enoxaparin Sodium (Lovenox) 100 mg Q12 SC Last administered on 11/11/17 09:45 ; Admin Dose 100 MG; Start 11/08/17 at 21:00 Diltiazem HCl (Cardizem) 30 mg Q8 PO Last administered on 11/11/17 05:29; Admin Dose 30 MG; Start 11/08/17 at 14:00 Promethazine HCl/ Codeine 5 ml 5 ml Q4H PRN PO COUGH Last administered on 11/11 05:51; Admin Dose 5 ML; Start 11/08/17 at 18:00 Diltiazem HCl (Cardizem-D5W 125 Mg/125 ml Drip) 125 ml @ 15 mls/hr TITRATE IV Last administered on 11/10/17 14:19; Admin Dose 15 MLS/HR; Start 11/09/17 at 00:00 Morphine Sulfate (morphine) 2 mg Q4H PRN IV PAIN Last administered on 23:56; Admin Dose 2 MG; Start 11/09/17 at 00:00 Salmeterol Xinafoate/ Fluticasone (Advair 250/50 Diskus) 1 inh BID INH Last administered on 11/11/17 09:26; Admin Dose 1 INH; Start 11/09/17 at 12:30 Atenolol (Tenormin) 25 mg BID PO Last administered on 11/11/17 09:28; Admin Dose 25 MG; Start 11/10/17 at 15:00 Metoprolol Tartrate (Lopressor) 5 mg Q4 PRN IV HR>110 Hold SBP<100; Start at 15:00 SANDIP KANG Nov 11, 2017 10:54
--- NOTE | 2017-11-11 14:11 | CONS ---
Date/Time of Note Date/Time of Note DATE: 11/11/17 TIME: 14:09 Assessment/Plan Assessment/Plan Chief Complaint/Hosp Course IMPRESSION: 1. Atrial fibrillation with ongoing rapid ventricular response. NL TSH 2. Palpitations secondary to atrial fibrillation with rapid ventricular response. 3. Chest pain, possibly also related to the patient's atrial fibrillation with rapid ventricular response.-negative trop x 3. 4. Hypertension. 5. Dyslipidemia. 6. Upper respiratory infection. 7. Fever. Recc: -Tele -serial ecg's -Continue CCBand BB with uptitration to improve BP control as necessary -s/pdose digoxin IVP x 2a nd will give one more additional -Continue lovenox with transition to eliquis at d/c as insurance will allow -Continue steroids/bronchodilators Problems: Consultation Date/Type/Reason Admit Date/Time Nov 08, 2017 at 01:52 Initial Consult Date 11/08/2017 Type of Consultation: cardiology Reason for Consultation AF with RVR Referring Provider: SANDIP KANG Exam/Review of Systems Vital Signs Vitals Vital Signs Date Time Temp Pulse Resp B/P Pulse Ox O2 Delivery O2 Flow Rate FiO2 11/11/17 12:16 97 18 93 21 11/11/17 11:05 97.6 116/79 11/11/17 04:12 Nasal Cannula 2.0 Intake and Output 11/10/17 11/10/17 11/11/17 15:00 23:00 07:00 Intake Total 1080 ml 1200 ml Balance 1080 ml 1200 ml Exam Review of Systems: CONSTITUTIONAL: No fevers, chills. PULMONARY: No sob CARDIOVASCULAR: mild palpitations GASTROINTESTINAL: No nausea/vomiting. GENITOURINARY: No hematuria/dysuria. MUSCULOSKELETAL: No myagias/arthalgias. PSYCHIATRIC: The patient denies depression. NEUROLOGIC: No weakness Constitutional: alert, oriented Psych: no complaints Head: normocephalic ENMT: mucosa pink and moist Neck: jvd (9cm water), supple Respiratory: diminished breath sounds (at bases/B) Cardiovascular: regular rate and rhythm (tachycardic) Gastrointestinal: non-tender, soft Musculoskeletal: muscle tone (normal) Extremities: edema (none) Neurological: other (No focal deficits) Results Result Diagram: 11/11/1717 11/11/17 0617 Results 24 hrs Laboratory Tests Test 11/11/17 06:17 White Blood Count 4.2 L Red Blood Count 4.29 L Hemoglobin 12.8 L Hematocrit 38.9 L Mean Corpuscular Volume 90.7 Mean Corpuscular Hemoglobin 29.8 Mean Corpuscular Hemoglobin Concent 32.9 Red Cell Distribution Width 12.2 Platelet Count 193 # Mean Platelet Volume 9.4 Neutrophils % 48.3 Lymphocytes % 36.6 Monocytes % 14.4 H Eosinophils % 0.0 Basophils % 0.5 Nucleated Red Blood Cells % 0.0 Neutrophils # 2.0 Lymphocytes # 1.5 Monocytes # 0.6 Eosinophils # 0.0 Basophils # 0.0 Nucleated Red Blood Cells # 0.0 Sodium Level 142 Potassium Level 3.4 L Chloride Level 101 Carbon Dioxide Level 29 Anion Gap 15 Blood Urea Nitrogen 12 Creatinine 0.79 Glucose Level 124 Calcium Level 9.0 Medications Medications Current Medications Ondansetron HCl (Zofran Tab) 4 mg Q6H PRN PO NAUSEA AND/OR VOMITING; Start at 02:30 Nitroglycerin (Nitroglycerin (Sl Tab) 0.4 Mg) 1 tab Q5M PRN SL CHEST PAIN Last administered on 11/08/17 23:57; Admin Dose 1 TAB; Start 11/08/17 at 02:30 Acetaminophen (Tylenol Tab) 650 mg Q6H PRN PO PAIN LEVEL 1-3 OR FEVER Last administered on 11/10/17 12:45; Admin Dose 650 MG; Start 11/08/17 at 02:30 Docusate Sodium (Colace) 100 mg Q12H PRN PO CONSTIPATION; Start 11/08/17 at 02 :30 Bisacodyl (Dulcolax) 5 mg DAILY PRN PO CONSTIPATION; Start 11/08/17 at 02:30 Amoxicillin/ Clavulanate Potassium (Augmentin) 875 mg BID PO Last administered on 11/11/17 09:26; Admin Dose 875 MG; Start 11/08/17 at 09:00 Prednisone (Prednisone) 60 mg DAILY PO Last administered on 11/11/17 09:27; Admin Dose 60 MG; Start 11/09/17 at 09:00 Lamotrigine (Lamictal) 225 mg QHS PO Last administered on 11/10/17 20:52; Admin Dose 225 MG; Start 11/08/17 at 21:00 Enoxaparin Sodium (Lovenox) 100 mg Q12 SC Last administered on 11/11/17 09:45 ; Admin Dose 100 MG; Start 11/08/17 at 21:00 Diltiazem HCl (Cardizem) 30 mg Q8 PO Last administered on 11/11/17 05:29; Admin Dose 30 MG; Start 11/08/17 at 14:00 Promethazine HCl/ Codeine 5 ml 5 ml Q4H PRN PO COUGH Last administered on 11/11 05:51; Admin Dose 5 ML; Start 11/08/17 at 18:00 Diltiazem HCl (Cardizem-D5W 125 Mg/125 ml Drip) 125 ml @ 15 mls/hr TITRATE IV Last administered on 11/10/17 14:19; Admin Dose 15 MLS/HR; Start 11/09/17 at 00:00 Morphine Sulfate (morphine) 2 mg Q4H PRN IV PAIN Last administered on 10:50; Admin Dose 2 MG; Start 11/09/17 at 00:00 Salmeterol Xinafoate/ Fluticasone (Advair 250/50 Diskus) 1 inh BID INH Last administered on 11/11/17 09:26; Admin Dose 1 INH; Start 11/09/17 at 12:30 Atenolol (Tenormin) 25 mg BID PO Last administered on 11/11/17 09:28; Admin Dose 25 MG; Start 11/10/17 at 15:00 Metoprolol Tartrate (Lopressor) 5 mg Q4 PRN IV HR>110 Hold SBP<100; Start at 15:00 BRAYAN GUERRA Nov 11, 2017 14:11
[2017-11-11] MEDS ORDERED: DIGOXIN 500 MCG INJ IV ONE (14:30)
[2017-11-11] MEDS: LAMOTRIGINE 100 MG TAB PO SCH (20:44)
[2017-11-12] VITALS (12 sets, daily range): BP systolic 96–125; BP diastolic 61–84; PULSE 97–124; RESP 18–20
[2017-11-12] MEDS: LEVALBUTEROL (NEB) 0.63 MG/3 ML AMP HHN SCH ×6 (01:14→20:27)
[2017-11-12] MEDS: DILTIAZEM 30 MG TAB PO SCH ×2 (05:26→13:01)
[2017-11-12] MEDS: morphine 2 MG INJ IV PRN ×4 (05:52→23:23)
[2017-11-12] MEDS: SALMETEROL/FLUTICASONE 250/50 INHA INH SCH ×2 (08:49→20:14)
[2017-11-12] MEDS: AMOXICILLIN/CLAV 875 MG TAB PO SCH ×2 (08:51→20:15)
[2017-11-12] MEDS: ATENOLOL 25 MG TAB PO SCH ×2 (08:51→20:16)
[2017-11-12] MEDS: predniSONE 20 MG TAB PO SCH (08:51)
[2017-11-12] MEDS: ENOXAPARIN 100 MG/ML SYG SC SCH ×2 (09:01→20:24)
[2017-11-12 09:36] LABS: BASOPHILS % 0.3 % (0.0-2.0); EOSINOPHILS % 0.7 % (0.0-7.0); HEMATOCRIT 44.7 % (42.0-52.0); HEMOGLOBIN 14.8 g/dl (14.0-18.0); LYMPHOCYTES # 2.1 10^3/ul (0.8-2.9); LYMPHOCYTES % 36.1 % (15.0-51.0); MEAN CORPUSCULAR HEMOGLOBIN 29.9 pg (29.0-33.0); MEAN CORPUSCULAR HGB CONC 33.1 g/dl (32.0-37.0); MEAN CORPUSCULAR VOLUME 90.3 fl (82.0-101.0); MEAN PLATELET VOLUME 9.2 fl (7.4-10.4); MONOCYTE # 0.7 10^3/ul (0.3-0.9); MONOCYTES % 12.4 % (0.0-11.0); NEUTROPHIL # 2.9 10^3/ul (1.6-7.5); NEUTROPHILS % 50.2 % (39.0-77.0); PLATELET COUNT 227 10^3/UL (140-415); RED BLOOD COUNT 4.95 10^6/ul (4.70-6.10); RED CELL DISTRIBUTION WIDTH 11.9 % (11.5-14.5); WHITE BLOOD COUNT 5.8 10^3/ul (4.8-10.8)
[2017-11-12 10:07] LABS: CALCIUM 9.3 mg/dl (8.4-10.2); CREATININE 0.84 mg/dl (0.61-1.24)
--- NOTE | 2017-11-12 13:43 | CONS ---
Date/Time of Note Date/Time of Note DATE: 11/12/17 TIME: 13:40 Assessment/Plan Assessment/Plan Chief Complaint/Hosp Course IMPRESSION: 1. Atrial fibrillation with ongoing rapid ventricular response. NL TSH 2. Palpitations secondary to atrial fibrillation with rapid ventricular response. 3. Chest pain, possibly also related to the patient's atrial fibrillation with rapid ventricular response.-negative trop x 3. 4. Hypertension. 5. Dyslipidemia. 6. Upper respiratory infection. 7. Fever. Recc: -Tele -serial ecg's -Continue CCB and BB with uptitration to improve HR control as necessary -s/pdose digoxin IVP with ongoing elevated HR -Continue lovenox with transition to eliquis at d/c as insurance will allow -Continue steroids/bronchodilators Problems: Consultation Date/Type/Reason Admit Date/Time Nov 08, 2017 at 01:52 Initial Consult Date 11/08/2017 Type of Consultation: cardiology Reason for Consultation AF Referring Provider: SANDIP KANG Exam/Review of Systems Vital Signs Vitals Vital Signs Date Time Temp Pulse Resp B/P Pulse Ox O2 Delivery O2 Flow Rate FiO2 11/12/17 13:04 16 94 21 11/12/17 12:01 116 11/12/17 11:09 98.4 125/82 11/12/17 08:00 Nasal Cannula 2.0 Intake and Output 11/11/17 11/11/17 11/12/17 15:00 23:00 07:00 Intake Total 960 ml 900 ml Balance 960 ml 900 ml Exam Review of Systems: CONSTITUTIONAL: No fevers, chills. PULMONARY: No sob CARDIOVASCULAR: mild palpitations GASTROINTESTINAL: No nausea/vomiting. GENITOURINARY: No hematuria/dysuria. MUSCULOSKELETAL: No myagias/arthalgias. PSYCHIATRIC: The patient denies depression. NEUROLOGIC: No weakness Constitutional: alert, oriented Psych: no complaints Head: normocephalic ENMT: mucosa pink and moist Neck: jvd (9 cm water), supple Respiratory: diminished breath sounds (at bases/B) Cardiovascular: irregular rhythm Gastrointestinal: non-tender, soft Musculoskeletal: muscle tone (normal) Extremities: edema (none) Neurological: other (No focal deficits) Results Result Diagram: 11/12/1791211/12/1713 Results 24 hrs Laboratory Tests Test 11/12/17 09:13 White Blood Count 5.8 # Red Blood Count 4.95 Hemoglobin 14.8 Hematocrit 44.7 Mean Corpuscular Volume 90.3 Mean Corpuscular Hemoglobin 29.9 Mean Corpuscular Hemoglobin Concent 33.1 Red Cell Distribution Width 11.9 Platelet Count 227 Mean Platelet Volume 9.2 Neutrophils % 50.2 Lymphocytes % 36.1 Monocytes % 12.4 H Eosinophils % 0.7 Basophils % 0.3 Nucleated Red Blood Cells % 0.0 Neutrophils # 2.9 Lymphocytes # 2.1 Monocytes # 0.7 Eosinophils # 0.0 Basophils # 0.0 Nucleated Red Blood Cells # 0.0 Sodium Level 141 Potassium Level 4.0 Chloride Level 98 Carbon Dioxide Level 33 H Anion Gap 14 Blood Urea Nitrogen 12 Creatinine 0.84 Glucose Level 118 Calcium Level 9.3 Medications Medications Current Medications Ondansetron HCl (Zofran Tab) 4 mg Q6H PRN PO NAUSEA AND/OR VOMITING; Start at 02:30 Nitroglycerin (Nitroglycerin (Sl Tab) 0.4 Mg) 1 tab Q5M PRN SL CHEST PAIN Last administered on 11/08/17 23:57; Admin Dose 1 TAB; Start 11/08/17 at 02:30 Acetaminophen (Tylenol Tab) 650 mg Q6H PRN PO PAIN LEVEL 1-3 OR FEVER Last administered on 11/10/17 12:45; Admin Dose 650 MG; Start 11/08/17 at 02:30 Docusate Sodium (Colace) 100 mg Q12H PRN PO CONSTIPATION; Start 11/08/17 at 02 :30 Bisacodyl (Dulcolax) 5 mg DAILY PRN PO CONSTIPATION; Start 11/08/17 at 02:30 Amoxicillin/ Clavulanate Potassium (Augmentin) 875 mg BID PO Last administered on 11/12/17 08:51; Admin Dose 875 MG; Start 11/08/17 at 09:00 Prednisone (Prednisone) 60 mg DAILY PO Last administered on 11/12/17 08:51; Admin Dose 60 MG; Start 11/09/17 at 09:00 Lamotrigine (Lamictal) 225 mg QHS PO Last administered on 11/11/17 20:44; Admin Dose 225 MG; Start 11/08/17 at 21:00 Enoxaparin Sodium (Lovenox) 100 mg Q12 SC Last administered on 11/12/17 09:01 ; Admin Dose 100 MG; Start 11/08/17 at 21:00 Diltiazem HCl (Cardizem) 30 mg Q8 PO Last administered on 11/12/17 13:01; Admin Dose 30 MG; Start 11/08/17 at 14:00 Promethazine HCl/ Codeine 5 ml 5 ml Q4H PRN PO COUGH Last administered on 11/11 05:51; Admin Dose 5 ML; Start 11/08/17 at 18:00 Diltiazem HCl (Cardizem-D5W 125 Mg/125 ml Drip) 125 ml @ 15 mls/hr TITRATE IV Last administered on 11/10/17 14:19; Admin Dose 15 MLS/HR; Start 11/09/17 at 00:00 Morphine Sulfate (morphine) 2 mg Q4H PRN IV PAIN Last administered on 13:13; Admin Dose 2 MG; Start 11/09/17 at 00:00 Salmeterol Xinafoate/ Fluticasone (Advair 250/50 Diskus) 1 inh BID INH Last administered on 11/12/17 08:49; Admin Dose 1 INH; Start 11/09/17 at 12:30 Metoprolol Tartrate (Lopressor) 5 mg Q4 PRN IV HR>110 Hold SBP<100; Start at 15:00 Atenolol (Tenormin) 50 mg BID PO Last administered on 11/12/17 08:51; Admin Dose 50 MG; Start 11/11/17 at 21:00 BRAYAN GUERRA Nov 12, 2017 13:43
--- NOTE | 2017-11-12 14:22 | PN ---
Date/Time of Note Date/Time of Note DATE: 11/12/17 TIME: 14:16 Assessment/Plan VTE Prophylaxis VTE Prophylaxis Intervention: SCD's Lines/Catheters IV [facility]from [facility]ine [facility] Assessment/Plan Chief Complaint/Hosp Course Assessment and plan 1. Atrial fibrillation with rapid ventricular response. continue diltiazem and atenolol. Follow-up with global supply chain director recommendations. Continue telemetry monitoring. Of note patient did have echocardiogram with ejection fraction seen at 55% with normal diastolic dysfunction. 2. Asthma with exacerbation. Continue on O2 and titrate down as tolerated. Continue bronchodilators. improved 3. Suspect upper respiratory infection. Continue antibiotics for now. 4. Hypertension. Will monitor and provide with antihypertensives as needed. 5. Dyslipidemia. Stable at present. Will monitor. 6. Suspect psychiatric disorder. Continue on Lamictal Disposition plan: continue diltiazem and atenolol. monitor for stability of HR. d/c when medically stable and cleared by consultants Discussed plan of care with Dr. Krishnamurthy Problems: Subjective 24 Hr Interval Summary Free Text/Dictation still with labile heart rate. denies chest pain today. no respiratory distress seen Exam/Review of Systems Vital Signs Vitals Vital Signs Date Time Temp Pulse Resp B/P Pulse Ox O2 Delivery O2 Flow Rate FiO2 11/12/17 13:04 16 94 21 11/12/17 12:01 116 11/12/17 11:09 98.4 125/82 11/12/17 08:00 Nasal Cannula 2.0 Intake and Output 11/11/17 11/11/17 11/12/17 15:00 23:00 07:00 Intake Total 960 ml 900 ml Balance 960 ml 900 ml Exam Constitutional: alert Psych: anxiety Head: normocephalic Respiratory: clear to auscultation, normal air movement Cardiovascular: irregular rhythm Gastrointestinal: non-tender, soft Musculoskeletal: nl extremities to inspection, nl gait and stance 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, nl mental status, nl speech Skin: nl turgor Results Result Diagram: 11/12/1713 11/12/17 0913 Results 24 hrs Laboratory Tests Test 11/12/17 09:13 White Blood Count 5.8 # Red Blood Count 4.95 Hemoglobin 14.8 Hematocrit 44.7 Mean Corpuscular Volume 90.3 Mean Corpuscular Hemoglobin 29.9 Mean Corpuscular Hemoglobin Concent 33.1 Red Cell Distribution Width 11.9 Platelet Count 227 Mean Platelet Volume 9.2 Neutrophils % 50.2 Lymphocytes % 36.1 Monocytes % 12.4 H Eosinophils % 0.7 Basophils % 0.3 Nucleated Red Blood Cells % 0.0 Neutrophils # 2.9 Lymphocytes # 2.1 Monocytes # 0.7 Eosinophils # 0.0 Basophils # 0.0 Nucleated Red Blood Cells # 0.0 Sodium Level 141 Potassium Level 4.0 Chloride Level 98 Carbon Dioxide Level 33 H Anion Gap 14 Blood Urea Nitrogen 12 Creatinine 0.84 Glucose Level 118 Calcium Level 9.3 Medications Medications Current Medications Ondansetron HCl (Zofran Tab) 4 mg Q6H PRN PO NAUSEA AND/OR VOMITING; Start at 02:30 Nitroglycerin (Nitroglycerin (Sl Tab) 0.4 Mg) 1 tab Q5M PRN SL CHEST PAIN Last administered on 11/08/17 23:57; Admin Dose 1 TAB; Start 11/08/17 at 02:30 Acetaminophen (Tylenol Tab) 650 mg Q6H PRN PO PAIN LEVEL 1-3 OR FEVER Last administered on 11/10/17 12:45; Admin Dose 650 MG; Start 11/08/17 at 02:30 Docusate Sodium (Colace) 100 mg Q12H PRN PO CONSTIPATION; Start 11/08/17 at 02 :30 Bisacodyl (Dulcolax) 5 mg DAILY PRN PO CONSTIPATION; Start 11/08/17 at 02:30 Amoxicillin/ Clavulanate Potassium (Augmentin) 875 mg BID PO Last administered on 11/12/17 08:51; Admin Dose 875 MG; Start 11/08/17 at 09:00 Prednisone (Prednisone) 60 mg DAILY PO Last administered on 11/12/17 08:51; Admin Dose 60 MG; Start 11/09/17 at 09:00 Lamotrigine (Lamictal) 225 mg QHS PO Last administered on 11/11/17 20:44; Admin Dose 225 MG; Start 11/08/17 at 21:00 Enoxaparin Sodium (Lovenox) 100 mg Q12 SC Last administered on 11/12/17 09:01 ; Admin Dose 100 MG; Start 11/08/17 at 21:00 Promethazine HCl/ Codeine 5 ml 5 ml Q4H PRN PO COUGH Last administered on 11/11 05:51; Admin Dose 5 ML; Start 11/08/17 at 18:00 Diltiazem HCl (Cardizem-D5W 125 Mg/125 ml Drip) 125 ml @ 15 mls/hr TITRATE IV Last administered on 11/10/17 14:19; Admin Dose 15 MLS/HR; Start 11/09/17 at 00:00 Morphine Sulfate (morphine) 2 mg Q4H PRN IV PAIN Last administered on 13:13; Admin Dose 2 MG; Start 11/09/17 at 00:00 Salmeterol Xinafoate/ Fluticasone (Advair 250/50 Diskus) 1 inh BID INH Last administered on 11/12/17 08:49; Admin Dose 1 INH; Start 11/09/17 at 12:30 Metoprolol Tartrate (Lopressor) 5 mg Q4 PRN IV HR>110 Hold SBP<100; Start at 15:00 Atenolol (Tenormin) 50 mg BID PO Last administered on 11/12/17 08:51; Admin Dose 50 MG; Start 11/11/17 at 21:00 Diltiazem HCl (Cardizem) 60 mg Q8 PO ; Start 11/12/17 at 14:00 SANDIP KANG Nov 12, 2017 14:22
[2017-11-12] MEDS: DILTIAZEM 60 MG TAB PO SCH ×2 (15:01→21:24)
[2017-11-12] MEDS: LAMOTRIGINE 100 MG TAB PO SCH (20:15)
[2017-11-13] VITALS (12 sets, daily range): BP systolic 94–128; BP diastolic 68–88; PULSE 91–160; RESP 16–20
[2017-11-13] MEDS: LEVALBUTEROL (NEB) 0.63 MG/3 ML AMP HHN SCH ×6 (00:13→20:23)
[2017-11-13] MEDS: DILTIAZEM 60 MG TAB PO SCH ×3 (06:00→21:06)
[2017-11-13] MEDS: morphine 2 MG INJ IV PRN ×3 (07:27→22:28)
[2017-11-13 08:01] LABS: BASOPHILS % 0.3 % (0.0-2.0); EOSINOPHILS # 0.1 10^3/ul (0.0-0.5); EOSINOPHILS % 0.8 % (0.0-7.0); HEMATOCRIT 40.3 % (42.0-52.0); HEMOGLOBIN 13.6 g/dl (14.0-18.0); LYMPHOCYTES # 2.4 10^3/ul (0.8-2.9); LYMPHOCYTES % 37.9 % (15.0-51.0); MEAN CORPUSCULAR HEMOGLOBIN 29.6 pg (29.0-33.0); MEAN CORPUSCULAR HGB CONC 33.7 g/dl (32.0-37.0); MEAN CORPUSCULAR VOLUME 87.6 fl (82.0-101.0); MEAN PLATELET VOLUME 9.8 fl (7.4-10.4); MONOCYTE # 0.8 10^3/ul (0.3-0.9); MONOCYTES % 13.2 % (0.0-11.0); NEUTROPHIL # 2.9 10^3/ul (1.6-7.5); NEUTROPHILS % 47.2 % (39.0-77.0); PLATELET COUNT 203 10^3/UL (140-415); WHITE BLOOD COUNT 6.2 10^3/ul (4.8-10.8)
[2017-11-13] MEDS: SALMETEROL/FLUTICASONE 250/50 INHA INH SCH ×2 (08:10→21:05)
[2017-11-13] MEDS: predniSONE 20 MG TAB PO SCH (08:10)
[2017-11-13] MEDS: ATENOLOL 25 MG TAB PO SCH ×2 (08:10→21:07)
[2017-11-13] MEDS: AMOXICILLIN/CLAV 875 MG TAB PO SCH ×2 (08:10→21:05)
[2017-11-13] MEDS: ENOXAPARIN 100 MG/ML SYG SC SCH ×2 (08:12→21:09)
[2017-11-13 08:23] LABS: CREATININE 0.89 mg/dl (0.61-1.24); POTASSIUM 3.9 mmol/L (3.5-5.1)
[2017-11-13] MEDS ORDERED: MONTELUKAST 10 MG TAB PO ONE (11:00)
--- NOTE | 2017-11-13 11:08 | PN ---
Date/Time of Note Date/Time of Note DATE: 11/13/17 TIME: 11:03 Assessment/Plan VTE Prophylaxis VTE Prophylaxis Intervention: heparin Lines/Catheters IV C[facility] Type [facility]from [facility] Saline Lock Assessment/Plan Problems: (1) Atrial fibrillation with RVR Status: Acute Comment: Cardiology is assisting. Patient has normal thyroid function and the echocardiogram did not demonstrate major abnormalities fortunately. As such we are going to have to deal with rate control although have to be somewhat cautious with the beta-blockade given his lung disease. He is on a cardioselective beta-jenniffer. Since he still running fasting then and continue the digoxin to help control this. Ultimately he will have to be considered for cardioversion however he will need to be on the Eliquis for a while first. Please note that his primary care physician is Dr. Amy Howe (2) Diastolic dysfunction Status: Chronic Comment: Noted and on beta-blockade (3) Essential hypertension Status: Chronic Comment: Better controlled medication (4) Asthma, moderate persistent Status: Chronic Comment: Settling down. Continue the Advair and add back in Montelukast. Qualifiers: Asthma complication type: with acute exacerbation Qualified Code: J45.41 - Moderate persistent asthma with acute exacerbation (5) Chronic pain syndrome Status: Chronic Comment: Noted. Subjective 24 Hr Interval Summary Free Text/Dictation Patient reports that his breathing is better. Still having palpitations and occasional tachycardia Constitutional: no complaints (Denies fevers chills or sweats) Respiratory: cough (Especially cough in the morning), wheezing Cardiovascular: palpitations Gastrointestinal: no complaints Genitourinary: no complaints Musculoskeletal: back pain (Chronic.) Exam/Review of Systems Vital Signs Vitals Vital Signs Date Time Temp Pulse Resp B/P Pulse Ox O2 Delivery O2 Flow Rate FiO2 11/13/17 08:00 Nasal Cannula 2.0 11/13/17 08:00 160 11/13/17 07:25 98.1 16 128/75 96 11/13/17 07:10 21 Intake and Output 11/12/17 11/12/17 11/13/17 15:00 23:00 07:00 Intake Total 1200 ml 1000 ml Balance 1200 ml 1000 ml Exam Constitutional: alert, oriented Neck: non-tender, supple Respiratory: wheezing Cardiovascular: irregular rhythm Gastrointestinal: nl liver, spleen, non-tender, soft Extremities: normal pulses Results Result Diagram: 11/13/17 0640 11/13/17 0640 Results 24 hrs Laboratory Tests Test 11/13/17 06:40 White Blood Count 6.2 Red Blood Count 4.60 L Hemoglobin 13.6 L Hematocrit 40.3 L Mean Corpuscular Volume 87.6 Mean Corpuscular Hemoglobin 29.6 Mean Corpuscular Hemoglobin Concent 33.7 Red Cell Distribution Width 12.0 Platelet Count 203 Mean Platelet Volume 9.8 Neutrophils % 47.2 Lymphocytes % 37.9 Monocytes % 13.2 H Eosinophils % 0.8 Basophils % 0.3 Nucleated Red Blood Cells % 0.0 Neutrophils # 2.9 Lymphocytes # 2.4 Monocytes # 0.8 Eosinophils # 0.1 Basophils # 0.0 Nucleated Red Blood Cells # 0.0 Sodium Level 142 Potassium Level 3.9 Chloride Level 101 Carbon Dioxide Level 31 Anion Gap 14 Blood Urea Nitrogen 19 Creatinine 0.89 Glucose Level 102 Calcium Level 9.0 Medications Medications Current Medications Ondansetron HCl (Zofran Tab) 4 mg Q6H PRN PO NAUSEA AND/OR VOMITING; Start at 02:30 Nitroglycerin (Nitroglycerin (Sl Tab) 0.4 Mg) 1 tab Q5M PRN SL CHEST PAIN Last administered on 11/08/17 23:57; Admin Dose 1 TAB; Start 11/08/17 at 02:30 Acetaminophen (Tylenol Tab) 650 mg Q6H PRN PO PAIN LEVEL 1-3 OR FEVER Last administered on 11/10/17 12:45; Admin Dose 650 MG; Start 11/08/17 at 02:30 Docusate Sodium (Colace) 100 mg Q12H PRN PO CONSTIPATION; Start 11/08/17 at 02 :30 Bisacodyl (Dulcolax) 5 mg DAILY PRN PO CONSTIPATION; Start 11/08/17 at 02:30 Amoxicillin/ Clavulanate Potassium (Augmentin) 875 mg BID PO Last administered on 11/13/17 08:10; Admin Dose 875 MG; Start 11/08/17 at 09:00 Prednisone (Prednisone) 60 mg DAILY PO Last administered on 11/13/17 08:10; Admin Dose 60 MG; Start 11/09/17 at 09:00 Lamotrigine (Lamictal) 225 mg QHS PO Last administered on 11/12/17 20:15; Admin Dose 225 MG; Start 11/08/17 at 21:00 Enoxaparin Sodium (Lovenox) 100 mg Q12 SC Last administered on 11/13/17 08:12 ; Admin Dose 100 MG; Start 11/08/17 at 21:00 Promethazine HCl/ Codeine 5 ml 5 ml Q4H PRN PO COUGH Last administered on 11/11 05:51; Admin Dose 5 ML; Start 11/08/17 at 18:00 Diltiazem HCl (Cardizem-D5W 125 Mg/125 ml Drip) 125 ml @ 15 mls/hr TITRATE IV Last administered on 11/10/17 14:19; Admin Dose 15 MLS/HR; Start 11/09/17 at 00:00 Morphine Sulfate (morphine) 2 mg Q4H PRN IV PAIN Last administered on 07:27; Admin Dose 2 MG; Start 11/09/17 at 00:00 Salmeterol Xinafoate/ Fluticasone (Advair 250/50 Diskus) 1 inh BID INH Last administered on 11/13/17 08:10; Admin Dose 1 INH; Start 11/09/17 at 12:30 Metoprolol Tartrate (Lopressor) 5 mg Q4 PRN IV HR>110 Hold SBP<100; Start at 15:00 Atenolol (Tenormin) 50 mg BID PO Last administered on 11/13/17 08:10; Admin Dose 50 MG; Start 11/11/17 at 21:00 Diltiazem HCl (Cardizem) 60 mg Q8 PO Last administered on 11/12/17 21:24; Admin Dose 60 MG; Start 11/12/17 at 14:00 Copies To: CC: AMY HOWE MD, JOSHUA A MD Nov 13, 2017 11:08
[2017-11-13] MEDS: DIGOXIN 0.25 MG TAB PO SCH (13:08)
[2017-11-13] MEDS: LAMOTRIGINE 100 MG TAB PO SCH (21:06)
[2017-11-13] MEDS: MONTELUKAST 10 MG TAB PO SCH (21:07)
[2017-11-13] MEDS: PROMETHAZINE/CODEINE 5ML CUP PO PRN (21:13)
[2017-11-14] VITALS (11 sets, daily range): BP systolic 96–123; BP diastolic 55–77; PULSE 84–105; RESP 16–20
[2017-11-14] MEDS: LEVALBUTEROL (NEB) 0.63 MG/3 ML AMP HHN SCH ×6 (00:26→21:27)
[2017-11-14] MEDS: DILTIAZEM 60 MG TAB PO SCH (05:56)
[2017-11-14] MEDS: morphine 2 MG INJ IV PRN (06:08)
[2017-11-14] MEDS: predniSONE 20 MG TAB PO SCH (09:11)
[2017-11-14] MEDS: ATENOLOL 25 MG TAB PO SCH ×2 (09:12→21:01)
[2017-11-14] MEDS: AMOXICILLIN/CLAV 875 MG TAB PO SCH ×2 (09:12→21:01)
[2017-11-14] MEDS: SALMETEROL/FLUTICASONE 250/50 INHA INH SCH ×2 (09:13→21:01)
[2017-11-14] MEDS: ENOXAPARIN 100 MG/ML SYG SC SCH ×2 (09:21→21:05)
--- NOTE | 2017-11-14 10:28 | PN ---
Date/Time of Note Date/Time of Note DATE: 11/14/17 TIME: 10:26 Assessment/Plan VTE Prophylaxis VTE Prophylaxis Intervention: heparin Lines/Catheters IV Catheter Type (from Nrs): Saline Lock Assessment/Plan Problems: (1) Atrial fibrillation with RVR Status: Acute Comment: Right is under control. Can switch his medicines around to reflect what would be an outpatient regimen and make sure that his rate stays under control. (2) Diastolic dysfunction Status: Chronic Comment: He is on both beta-blockade and calcium channel jenniffer for the diastolic dysfunction which should help control this. (3) Essential hypertension Status: Chronic Comment: Adequate control. (4) Asthma, moderate persistent Status: Chronic Comment: I believe we can start tapering down on his steroid dosages toward a more outpatient regimen. Qualifiers: Asthma complication type: with acute exacerbation Qualified Code: J45.41 - Moderate persistent asthma with acute exacerbation (5) Chronic pain syndrome Status: Chronic Comment: Regarding the chronic pain syndrome will transition to an outpatient regimen stop the IV morphine Subjective 24 Hr Interval Summary Free Text/Dictation Patient reports his breathing is feeling significantly better. Denies complaints of pain denies any cardiac symptoms Constitutional: no complaints (No fevers chills or sweats) Respiratory: no complaints (No cough no shortness of breath no wheezing) Cardiovascular: no complaints (No chest pain no PND no orthopnea no palpitations) Gastrointestinal: no complaints Genitourinary: no complaints Exam/Review of Systems Vital Signs Vitals Vital Signs Date Time Temp Pulse Resp B/P Pulse Ox O2 Delivery O2 Flow Rate FiO2 11/14/17 08:04 84 11/14/17 07:13 98.3 18 105/68 95 11/14/17 05:18 21 11/13/17 08:00 Nasal Cannula 2.0 Intake and Output 11/13/17 11/13/17 11/14/17 15:00 23:00 07:00 Intake Total 980 ml 500 ml Balance 980 ml 500 ml Exam Constitutional: alert, oriented Respiratory: clear to auscultation, normal air movement Cardiovascular: nl pulses, regular rate and rhythm Gastrointestinal: nl liver, spleen, non-tender, soft Results Result Diagram: 11/13/17 0640 11/13/17 0640 Results 24 hrs Laboratory Tests Test 11/14/17 05:54 Digoxin Level 0.4 L Hepatitis C Antibody NEGATIVE Medications Medications Current Medications Ondansetron HCl (Zofran Tab) 4 mg Q6H PRN PO NAUSEA AND/OR VOMITING; Start at 02:30 Nitroglycerin (Nitroglycerin (Sl Tab) 0.4 Mg) 1 tab Q5M PRN SL CHEST PAIN Last administered on 11/08/17 23:57; Admin Dose 1 TAB; Start 11/08/17 at 02:30 Acetaminophen (Tylenol Tab) 650 mg Q6H PRN PO PAIN LEVEL 1-3 OR FEVER Last administered on 11/10/17 12:45; Admin Dose 650 MG; Start 11/08/17 at 02:30 Docusate Sodium (Colace) 100 mg Q12H PRN PO CONSTIPATION; Start 11/08/17 at 02 :30 Bisacodyl (Dulcolax) 5 mg DAILY PRN PO CONSTIPATION; Start 11/08/17 at 02:30 Amoxicillin/ Clavulanate Potassium (Augmentin) 875 mg BID PO Last administered on 11/14/17 09:12; Admin Dose 875 MG; Start 11/08/17 at 09:00 Prednisone (Prednisone) 60 mg DAILY PO Last administered on 11/14/17 09:11; Admin Dose 60 MG; Start 11/09/17 at 09:00 Lamotrigine (Lamictal) 225 mg QHS PO Last administered on 11/13/17 21:06; Admin Dose 225 MG; Start 11/08/17 at 21:00 Enoxaparin Sodium (Lovenox) 100 mg Q12 SC Last administered on 11/14/17 09:21 ; Admin Dose 100 MG; Start 11/08/17 at 21:00 Promethazine HCl/ Codeine 5 ml 5 ml Q4H PRN PO COUGH Last administered on 11/13 21:13; Admin Dose 5 ML; Start 11/08/17 at 18:00 Diltiazem HCl (Cardizem-D5W 125 Mg/125 ml Drip) 125 ml @ 15 mls/hr TITRATE IV Last administered on 11/10/17 14:19; Admin Dose 15 MLS/HR; Start 11/09/17 at 00:00 Morphine Sulfate (morphine) 2 mg Q4H PRN IV PAIN Last administered on 06:08; Admin Dose 2 MG; Start 11/09/17 at 00:00 Salmeterol Xinafoate/ Fluticasone (Advair 250/50 Diskus) 1 inh BID INH Last administered on 11/14/17 09:13; Admin Dose 1 INH; Start 11/09/17 at 12:30 Metoprolol Tartrate (Lopressor) 5 mg Q4 PRN IV HR>110 Hold SBP<100; Start at 15:00 Atenolol (Tenormin) 50 mg BID PO Last administered on 11/14/17 09:12; Admin Dose 50 MG; Start 11/11/17 at 21:00 Diltiazem HCl (Cardizem) 60 mg Q8 PO Last administered on 11/14/17 05:56; Admin Dose 60 MG; Start 11/12/17 at 14:00 Montelukast Sodium (Singulair) 10 mg HS PO Last administered on 11/13/17 21: 07; Admin Dose 10 MG; Start 11/13/17 at 21:00 Digoxin (Digoxin) 0.25 mg DAILY@13 PO Last administered on 11/13/17 13:08; Admin Dose 0.25 MG; Start 11/13/17 at 13:00 LUCIO COLLINS MD Nov 14, 2017 10:28
[2017-11-14] MEDS: DILTIAZEM (CD) 240 MG CAP PO SCH (11:30)
[2017-11-14] MEDS: NAPROXEN 250 MG TAB PO SCH ×2 (11:30→21:02)
[2017-11-14] MEDS: PROMETHAZINE/CODEINE 5ML CUP PO PRN (13:18)
[2017-11-14] MEDS: METOPROLOL 5 MG INJ IV PRN ×2 (13:20→18:38)
[2017-11-14] MEDS: DIGOXIN 0.25 MG TAB PO SCH (13:28)
--- NOTE | 2017-11-14 13:55 | CONS ---
Date/Time of Note Date/Time of Note DATE: 11/14/17 TIME: 13:50 Assessment/Plan Assessment/Plan Additional Assessment/Plan 1. Atrial fibrillation with ongoing rapid ventricular response. NL TSH 2. Palpitations secondary to atrial fibrillation with rapid ventricular response. 3. Chest pain, possibly also related to the patient's atrial fibrillation with rapid ventricular response.-negative trop x 3. Stable now. 4. Hypertension- controlled 5. Dyslipidemia. 6. PVCs (vs aberrancy) Recc: -Tele -Continue CCB and BB with uptitration to improve HR control as necessary. Cardizem just increased by Dr. Haile. -s/pdose digoxin IVP with ongoing elevated HR -Continue lovenox with transition to eliquis at d/c as insurance will allow -Continue steroids/bronchodilators Consultation Date/Type/Reason Admit Date/Time Nov 08, 2017 at 01:52 Initial Consult Date Type of Consultation: cardiology Referring Provider: SANDIP KANG 24 HR Interval Summary Free Text/Dictation ROS: No fever, no chills, no nausea, no vomiting, no diarrhea/constipation No recent weight changes No edema. c/o palpitations at times No chest pain, no PND, no SOB No dizziness, blurred vision No thirst, no heat or cold intolerance Exam/Review of Systems Vital Signs Vitals Vital Signs Date Time Temp Pulse Resp B/P Pulse Ox O2 Delivery O2 Flow Rate FiO2 11/14/17 12:06 105 11/14/17 11:15 97.9 18 114/59 95 11/14/17 10:50 21 11/13/17 08:00 Nasal Cannula 2.0 Intake and Output 11/13/17 11/13/17 11/14/17 15:00 23:00 07:00 Intake Total 980 ml 500 ml Balance 980 ml 500 ml Exam General: WN/WD HEENT: Unicetric/atraumatic/ no assymetry NECK: JVD not elevated, no thyromegaly, carotids revealed normal upstrokes Lymph: no lymphadenopathy HEART: irregular with I/ systolic murmur at apex LUNGS: clear ABD: soft, NT, ND, +BS, no organomegaly Neuro: no deficit SKIN: no leisons EXT: no edema Results Result Diagram: 11/13/17 0640 11/13/17 0640 Results 24 hrs Laboratory Tests Test 11/14/17 05:54 Digoxin Level 0.4 L Hepatitis C Antibody NEGATIVE Medications Medications Current Medications Ondansetron HCl (Zofran Tab) 4 mg Q6H PRN PO NAUSEA AND/OR VOMITING; Start at 02:30 Nitroglycerin (Nitroglycerin (Sl Tab) 0.4 Mg) 1 tab Q5M PRN SL CHEST PAIN Last administered on 11/08/17 23:57; Admin Dose 1 TAB; Start 11/08/17 at 02:30 Acetaminophen (Tylenol Tab) 650 mg Q6H PRN PO PAIN LEVEL 1-3 OR FEVER Last administered on 11/10/17 12:45; Admin Dose 650 MG; Start 11/08/17 at 02:30 Docusate Sodium (Colace) 100 mg Q12H PRN PO CONSTIPATION; Start 11/08/17 at 02 :30 Bisacodyl (Dulcolax) 5 mg DAILY PRN PO CONSTIPATION; Start 11/08/17 at 02:30 Amoxicillin/ Clavulanate Potassium (Augmentin) 875 mg BID PO Last administered on 11/14/17 09:12; Admin Dose 875 MG; Start 11/08/17 at 09:00; Stop at 10:00 Lamotrigine (Lamictal) 225 mg QHS PO Last administered on 11/13/17 21:06; Admin Dose 225 MG; Start 11/08/17 at 21:00 Enoxaparin Sodium (Lovenox) 100 mg Q12 SC Last administered on 11/14/17 09:21 ; Admin Dose 100 MG; Start 11/08/17 at 21:00 Promethazine HCl/ Codeine (Phenergan/ Codeine) 5 ml Q4H PRN PO COUGH Last administered on 11/14/17 13:18; Admin Dose 5 ML; Start 11/08/17 at 18:00 Salmeterol Xinafoate/ Fluticasone (Advair 250/50 Diskus) 1 inh BID INH Last administered on 11/14/17 09:13; Admin Dose 1 INH; Start 11/09/17 at 12:30 Metoprolol Tartrate (Lopressor) 5 mg Q4 PRN IV HR>110 Hold SBP<100 Last administered on 11/14/17 13:20; Admin Dose 5 MG; Start 11/10/17 at 15:00 Atenolol (Tenormin) 50 mg BID PO Last administered on 11/14/17 09:12; Admin Dose 50 MG; Start 11/11/17 at 21:00 Montelukast Sodium (Singulair) 10 mg HS PO Last administered on 11/13/17 21: 07; Admin Dose 10 MG; Start 11/13/17 at 21:00 Digoxin (Digoxin) 0.25 mg DAILY@13 PO Last administered on 11/14/17 13:28; Admin Dose 0.25 MG; Start 11/13/17 at 13:00 Prednisone (Prednisone) 30 mg DAILY PO ; Start 11/15/17 at 09:00 Diltiazem HCl (Cardizem Cd) 240 mg DAILY PO Last administered on 11/14/17 11: 30; Admin Dose 240 MG; Start 11/14/17 at 10:30 Naproxen (Naprosyn) 250 mg BID PO Last administered on 11/14/17 11:30; Admin Dose 250 MG; Start 11/14/17 at 11:00 ANKITA GUTIERREZ MD Nov 14, 2017 13:55
[2017-11-14] MEDS: LAMOTRIGINE 100 MG TAB PO SCH (21:02)
[2017-11-14] MEDS: MONTELUKAST 10 MG TAB PO SCH (21:02)
[2017-11-14] MEDS: traMADol 50 MG TAB PO PRN (22:31)
[2017-11-15] VITALS (10 sets, daily range): BP systolic 99–124; BP diastolic 65–81; PULSE 70–97; RESP 16–20
[2017-11-15] MEDS: LEVALBUTEROL (NEB) 0.63 MG/3 ML AMP HHN SCH ×6 (01:44→20:12)
[2017-11-15] MEDS: traMADol 50 MG TAB PO PRN (04:43)
[2017-11-15] MEDS: SALMETEROL/FLUTICASONE 250/50 INHA INH SCH ×2 (08:44→21:18)
[2017-11-15] MEDS: AMOXICILLIN/CLAV 875 MG TAB PO SCH (08:44)
[2017-11-15] MEDS: NAPROXEN 250 MG TAB PO SCH (08:45)
[2017-11-15] MEDS: ATENOLOL 25 MG TAB PO SCH ×2 (08:47→21:19)
[2017-11-15] MEDS: DILTIAZEM (CD) 240 MG CAP PO SCH (08:48)
[2017-11-15] MEDS ORDERED: predniSONE 10 MG TAB PO SCH (09:00)
[2017-11-15] MEDS: ENOXAPARIN 100 MG/ML SYG SC SCH (09:27)
--- NOTE | 2017-11-15 12:25 | PN ---
Date/Time of Note Date/Time of Note DATE: 11/15/17 TIME: 12:25 Assessment/Plan VTE Prophylaxis VTE Prophylaxis Intervention: LMWH Lines/Catheters IV [facility] Saline Lock Assessment/Plan Chief Complaint/Hosp Course This is a 52-year-old male who comes in today complaining of shortness of breath and cough for the last 4 days who was noted asthma exacerbation and atrial fibrillation with rapid ventricular rate. 1. Atrial fibrillation with RVR Status: Acute. Remarks: with improved heart rate. -Cardiology on board. Status post IV digoxin. On beta-blockers, Cardizem and anticoagulation with Lovenox. -Case management for arranging outpatient oral anticoagulation with insurance authorization. 2. Essential hypertension Status: Chronic. Remarks: Stable -Continue antihypertensives. 3. Asthma. Status: Chronic. Remarks: Stable. -Continue current management. Taper of steroids. 4. Dyslipidemia. Status: Chronic. Remarks: Stable. -Continue statin. 5. 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 Status: Chronic. Remarks: Improved. -We will start patient on low-dose [place] as needed. DVT prophylaxis: Therapeutic Lovenox dose. Follow-up with cardiology recommendations. Patient was seen in collaboration with . Problems: Subjective 24 Hr Interval Summary Free Text/Dictation Patient with back pain not relieved by current pain regimen. Exam/Review of Systems Vital Signs Vitals Vital Signs Date Time Temp Pulse Resp B/P Pulse Ox O2 Delivery O2 Flow Rate FiO2 11/15/17 12:09 97 11/15/17 11:37 97.4 16 99/65 97 11/15/17 07:54 21 11/15/17 04:00 Room Air 11/13/17 08:00 2.0 Intake and Output 11/14/17 11/14/17 11/15/17 15:00 23:00 07:00 Intake Total 1130 ml 803 ml Balance 1130 ml 803 ml Exam General: Well developed,adequately built, not in any acute distress . HEENT: Normocephalic, Atraumatic, No laceration or hematoma; Eyes: PEERL, Conjunctiva clear, Anicteric sclera Neck: Supple without any lymphadenopathy, nontender, no JVD, no carotid bruits, trachea midline, no thyromegaly Cardiac: S1, S2 auscultated, Irregular rhythm and rate, no mumurs or gallop Pulmonary: Normal respiratory effort. Chest clear to auscultation bilaterally, no adventitious breath sounds GI: Abdomen normal to inspection. Soft, non tender, non- distended, no masses, no rebound tenderness or guarding. Bowel sounds active on all four quadrants Genitourinary: Deferred Extremities: No cyanosis, clubbing, or edema. Pulses [2+] bilaterally. Full ROM on all four extremities. No focal weakness appreciated. Neurologic: Alert to person, place, time, and situation. Affect appropriate, intact sensation. Skin: Clean,dry, and intact. No ecchymosis, no rashes, or lesions Results Result Diagram: 11/13/17 0640 11/13/17 0640 Results 24 hrs Laboratory Tests Test 11/15/17 07:28 Digoxin Level 0.4 L Medications Medications Current Medications Ondansetron HCl (Zofran Tab) 4 mg Q6H PRN PO NAUSEA AND/OR VOMITING; Start at 02:30 Nitroglycerin (Nitroglycerin (Sl Tab) 0.4 Mg) 1 tab Q5M PRN SL CHEST PAIN Last administered on 11/08/17 23:57; Admin Dose 1 TAB; Start 11/08/17 at 02:30 Acetaminophen (Tylenol Tab) 650 mg Q6H PRN PO PAIN LEVEL 1-3 OR FEVER Last administered on 11/10/17 12:45; Admin Dose 650 MG; Start 11/08/17 at 02:30 Docusate Sodium (Colace) 100 mg Q12H PRN PO CONSTIPATION; Start 11/08/17 at 02 :30 Bisacodyl (Dulcolax) 5 mg DAILY PRN PO CONSTIPATION; Start 11/08/17 at 02:30 Lamotrigine (Lamictal) 225 mg QHS PO Last administered on 11/14/17 21:02; Admin Dose 225 MG; Start 11/08/17 at 21:00 Enoxaparin Sodium (Lovenox) 100 mg Q12 SC Last administered on 11/15/17 09:27 ; Admin Dose 100 MG; Start 11/08/17 at 21:00 Promethazine HCl/ Codeine (Phenergan/ Codeine) 5 ml Q4H PRN PO COUGH Last administered on 11/14/17 13:18; Admin Dose 5 ML; Start 11/08/17 at 18:00 Salmeterol Xinafoate/ Fluticasone (Advair 250/50 Diskus) 1 inh BID INH Last administered on 11/15/17 08:44; Admin Dose 1 INH; Start 11/09/17 at 12:30 Metoprolol Tartrate (Lopressor) 5 mg Q4 PRN IV HR>110 Hold SBP<100 Last administered on 11/14/17 18:38; Admin Dose 5 MG; Start 11/10/17 at 15:00 Atenolol (Tenormin) 50 mg BID PO Last administered on 11/15/17 08:47; Admin Dose 50 MG; Start 11/11/17 at 21:00 Montelukast Sodium (Singulair) 10 mg HS PO Last administered on 11/14/17 21: 02; Admin Dose 10 MG; Start 11/13/17 at 21:00 Digoxin (Digoxin) 0.25 mg DAILY@13 PO Last administered on 11/14/17 13:28; Admin Dose 0.25 MG; Start 11/13/17 at 13:00 Prednisone (Prednisone) 30 mg DAILY PO Last administered on 11/15/17 08:46; Admin Dose 30 MG; Start 11/15/17 at 09:00 Diltiazem HCl (Cardizem Cd) 240 mg DAILY PO Last administered on 11/15/17 08: 48; Admin Dose 240 MG; Start 11/14/17 at 10:30 Naproxen (Naprosyn) 250 mg BID PO Last administered on 11/15/17 08:45; Admin Dose 250 MG; Start 11/14/17 at 11:00 Tramadol HCl (Ultram) 50 mg Q6H PRN PO PAIN LEVEL 7-10 Last administered on 04:43; Admin Dose 50 MG; Start 11/14/17 at 19:00 ROSANNA MEDINA NP Nov 15, 2017 12:25
[2017-11-15] MEDS: DIGOXIN 0.25 MG TAB PO SCH (12:37)
[2017-11-15] MEDS: HYDROCODONE/APAP (5/325) TAB PO PRN ×2 (12:38→16:53)
--- NOTE | 2017-11-15 15:24 | CONS ---
Date/Time of Note Date/Time of Note DATE: 11/15/17 TIME: 15:20 Assessment/Plan Assessment/Plan Additional Assessment/Plan 1. Atrial fibrillation with ongoing rapid ventricular response (upto 182). NL TSH. Started Amiodarone on 11/15/17. 2. Palpitations secondary to atrial fibrillation with rapid ventricular response. 3. Chest pain, possibly also related to the patient's atrial fibrillation with rapid ventricular response.-negative trop x 3. Stable now. 4. Hypertension- controlled 5. Dyslipidemia. 6. PVCs (vs aberrancy) Recc: -Tele -Continue CCB and BB with uptitration to improve HR control as necessary. Cardizem just increased by Dr. Haile. -s/pdose digoxin IVP with ongoing elevated HR -Satrt Eliquis -Continue steroids/bronchodilators Consultation Date/Type/Reason Admit Date/Time Nov 08, 2017 at 01:52 Type of Consultation: cardiology Referring Provider: SANDIP KANG 24 HR Interval Summary Free Text/Dictation ROS: No fever, no chills, no nausea, no vomiting, no diarrhea/constipation No recent weight changes No edema, no palpitations No chest pain, no PND, no SOB No dizziness, blurred vision No thirst, no heat or cold intolerance Exam/Review of Systems Vital Signs Vitals Vital Signs Date Time Temp Pulse Resp B/P Pulse Ox O2 Delivery O2 Flow Rate FiO2 11/15/17 12:09 97 11/15/17 11:37 97.4 16 99/65 97 11/15/17 07:54 21 11/15/17 04:00 Room Air 11/13/17 08:00 2.0 Intake and Output 11/14/17 11/14/17 11/15/17 15:00 23:00 07:00 Intake Total 1130 ml 803 ml Balance 1130 ml 803 ml Exam General: WN/WD HEENT: Unicetric/atraumatic/ no assymetry NECK: JVD not elevated, no thyromegaly, carotids revealed normal upstrokes Lymph: no lymphadenopathy HEART: irregular with no S3, I/ systolic murmur at apex LUNGS: clear ABD: soft, NT, ND, +BS, no organomegaly Neuro: no deficit SKIN: no leisons EXT: no edema Results Result Diagram: 12/23/17 0640 12/23/17 0640 Results 24 hrs Laboratory Tests Test 11/15/17 07:28 Digoxin Level 0.4 L Medications Medications Current Medications Ondansetron HCl (Zofran Tab) 4 mg Q6H PRN PO NAUSEA AND/OR VOMITING; Start at 02:30 Nitroglycerin (Nitroglycerin (Sl Tab) 0.4 Mg) 1 tab Q5M PRN SL CHEST PAIN Last administered on 11/08/17 23:57; Admin Dose 1 TAB; Start 11/08/17 at 02:30 Acetaminophen (Tylenol Tab) 650 mg Q6H PRN PO PAIN LEVEL 1-3 OR FEVER Last administered on 11/10/17 12:45; Admin Dose 650 MG; Start 11/08/17 at 02:30 Docusate Sodium (Colace) 100 mg Q12H PRN PO CONSTIPATION; Start 11/08/17 at 02 :30 Bisacodyl (Dulcolax) 5 mg DAILY PRN PO CONSTIPATION; Start 11/08/17 at 02:30 Lamotrigine (Lamictal) 225 mg QHS PO Last administered on 11/14/17 21:02; Admin Dose 225 MG; Start 11/08/17 at 21:00 Enoxaparin Sodium (Lovenox) 100 mg Q12 SC Last administered on 11/15/17 09:27 ; Admin Dose 100 MG; Start 11/08/17 at 21:00 Promethazine HCl/ Codeine (Phenergan/ Codeine) 5 ml Q4H PRN PO COUGH Last administered on 11/14/17 13:18; Admin Dose 5 ML; Start 11/08/17 at 18:00 Salmeterol Xinafoate/ Fluticasone (Advair 250/50 Diskus) 1 inh BID INH Last administered on 11/15/17 08:44; Admin Dose 1 INH; Start 11/09/17 at 12:30 Metoprolol Tartrate (Lopressor) 5 mg Q4 PRN IV HR>110 Hold SBP<100 Last administered on 11/14/17 18:38; Admin Dose 5 MG; Start 11/10/17 at 15:00 Atenolol (Tenormin) 50 mg BID PO Last administered on 11/15/17 08:47; Admin Dose 50 MG; Start 11/11/17 at 21:00 Montelukast Sodium (Singulair) 10 mg HS PO Last administered on 11/14/17 21: 02; Admin Dose 10 MG; Start 11/13/17 at 21:00 Digoxin (Digoxin) 0.25 mg DAILY@13 PO Last administered on 11/15/17 12:37; Admin Dose 0.25 MG; Start 11/13/17 at 13:00 Diltiazem HCl (Cardizem Cd) 240 mg DAILY PO Last administered on 11/15/17 08: 48; Admin Dose 240 MG; Start 11/14/17 at 10:30 Acetaminophen/ Hydrocodone Bitart ([place] (5/325)) 1 tab Q4H PRN PO pain Last administered on 11/15/17 12:38; Admin Dose 1 TAB; Start 11/15/17 at 12:30 Prednisone (Prednisone) 20 mg DAILY PO ; Start 11/16/17 at 09:00 ANKITA GUTIERREZ MD Nov 15, 2017 15:24
[2017-11-15] MEDS: LAMOTRIGINE 100 MG TAB PO SCH (21:00)
[2017-11-15] MEDS: APIXABAN 5 MG TABLET PO SCH (21:19)
[2017-11-15] MEDS: MONTELUKAST 10 MG TAB PO SCH (21:19)
[2017-11-15] MEDS: AMIODARONE 200 MG TAB PO SCH (21:21)
[2017-11-15] MEDS ORDERED: LAMOTRIGINE 25 MG TAB PO SCH (21:30)
[2017-11-16] VITALS (9 sets, daily range): BP systolic 100–118; BP diastolic 57–71; PULSE 70–90; RESP 16–19
[2017-11-16] MEDS: LEVALBUTEROL (NEB) 0.63 MG/3 ML AMP HHN SCH ×4 (00:40→13:07)
[2017-11-16] MEDS: HYDROCODONE/APAP (5/325) TAB PO PRN (06:55)
[2017-11-16 07:23] LABS: BASOPHILS % 0.4 % (0.0-2.0); EOSINOPHILS # 0.1 10^3/ul (0.0-0.5); HEMATOCRIT 40.5 % (42.0-52.0); HEMOGLOBIN 13.7 g/dl (14.0-18.0); LYMPHOCYTES # 3.5 10^3/ul (0.8-2.9); LYMPHOCYTES % 36.4 % (15.0-51.0); MEAN CORPUSCULAR HEMOGLOBIN 29.6 pg (29.0-33.0); MEAN CORPUSCULAR HGB CONC 33.8 g/dl (32.0-37.0); MEAN CORPUSCULAR VOLUME 87.5 fl (82.0-101.0); MEAN PLATELET VOLUME 9.7 fl (7.4-10.4); MONOCYTE # 0.9 10^3/ul (0.3-0.9); MONOCYTES % 9.2 % (0.0-11.0); NEUTROPHILS % 51.4 % (39.0-77.0); PLATELET COUNT 265 10^3/UL (140-415); RED BLOOD COUNT 4.63 10^6/ul (4.70-6.10); RED CELL DISTRIBUTION WIDTH 12.3 % (11.5-14.5); WHITE BLOOD COUNT 9.7 10^3/ul (4.8-10.8)
[2017-11-16 08:32] LABS: CALCIUM 9.1 mg/dl (8.4-10.2); CREATININE 0.8 mg/dl (0.61-1.24); MAGNESIUM 2.3 mg/dl (1.7-2.5); POTASSIUM 3.8 mmol/L (3.5-5.1)
[2017-11-16] MEDS: ATENOLOL 25 MG TAB PO SCH (08:57)
[2017-11-16] MEDS: DILTIAZEM (CD) 240 MG CAP PO SCH (08:57)
[2017-11-16] MEDS: APIXABAN 5 MG TABLET PO SCH (08:57)
[2017-11-16] MEDS: AMIODARONE 200 MG TAB PO SCH (08:58)
[2017-11-16] MEDS ORDERED: predniSONE 20 MG TAB PO SCH (09:00)
[2017-11-16] MEDS: SALMETEROL/FLUTICASONE 250/50 INHA INH SCH (10:40)
--- NOTE | 2017-11-16 11:38 | CONS ---
Date/Time of Note Date/Time of Note DATE: 11/16/17 TIME: 11:36 Assessment/Plan Assessment/Plan Additional Assessment/Plan 1. Atrial fibrillation with controlled ventricular response. NL TSH. Started Amiodarone on 11/15/17. 2. Palpitations secondary to atrial fibrillation with rapid ventricular response. Better now. 3. Chest pain, possibly also related to the patient's atrial fibrillation with rapid ventricular response.-negative trop x 3. Stable now. 4. Hypertension- controlled 5. Dyslipidemia. 6. PVCs (vs aberrancy) Recc: -Tele -Continue CCB and BB with uptitration to improve HR control as necessary. Cardizem just increased by Dr. Haile. -s/pdose digoxin IVP with ongoing elevated HR -Satrted Eliquis already -Continue steroids/bronchodilators OK to D/C Consultation Date/Type/Reason Admit Date/Time Nov 08, 2017 at 01:52 Type of Consultation: cardiology Referring Provider: SANDIP KANG 24 HR Interval Summary Free Text/Dictation ROS: No fever, no chills, no nausea, no vomiting, no diarrhea/constipation No recent weight changes No edema, no palpitations No chest pain, no PND, no SOB No dizziness, blurred vision No thirst, no heat or cold intolerance Exam/Review of Systems Vital Signs Vitals Vital Signs Date Time Temp Pulse Resp B/P Pulse Ox O2 Delivery O2 Flow Rate FiO2 11/16/17 11:31 98.4 90 19 108/70 95 11/16/17 09:16 21 11/15/17 04:00 Room Air 11/13/17 08:00 2.0 Intake and Output 11/15/17 11/15/17 11/16/17 15:00 23:00 07:00 Intake Total 1720 ml 750 ml Balance 1720 ml 750 ml Exam General: WN/WD HEENT: Unicetric/atraumatic/ no assymetry NECK: JVD not elevated, no thyromegaly, carotids revealed normal upstrokes Lymph: no lymphadenopathy HEART: regular with no S3, I/ systolic murmur at apex LUNGS: clear ABD: soft, NT, ND, +BS, no organomegaly Neuro: no deficit SKIN: no leisons EXT: no edema Tele: a fib with controlled VR Results Result Diagram: 11/16/17 0607 11/16/17 0607 Results 24 hrs Laboratory Tests Test 11/16/17 06:07 White Blood Count 9.7 # Red Blood Count 4.63 L Hemoglobin 13.7 L Hematocrit 40.5 L Mean Corpuscular Volume 87.5 Mean Corpuscular Hemoglobin 29.6 Mean Corpuscular Hemoglobin Concent 33.8 Red Cell Distribution Width 12.3 Platelet Count 265 # Mean Platelet Volume 9.7 Neutrophils % 51.4 Lymphocytes % 36.4 Monocytes % 9.2 Eosinophils % 1.0 Basophils % 0.4 Nucleated Red Blood Cells % 0.0 Neutrophils # 5.0 Lymphocytes # 3.5 H Monocytes # 0.9 Eosinophils # 0.1 Basophils # 0.0 Nucleated Red Blood Cells # 0.0 Sodium Level 139 Potassium Level 3.8 Chloride Level 100 Carbon Dioxide Level 32 H Anion Gap 11 Blood Urea Nitrogen 15 Creatinine 0.80 Glucose Level 96 Calcium Level 9.1 Magnesium Level 2.3 Medications Medications Current Medications Ondansetron HCl (Zofran Tab) 4 mg Q6H PRN PO NAUSEA AND/OR VOMITING; Start at 02:30 Nitroglycerin (Nitroglycerin (Sl Tab) 0.4 Mg) 1 tab Q5M PRN SL CHEST PAIN Last administered on 11/08/17 23:57; Admin Dose 1 TAB; Start 11/08/17 at 02:30 Acetaminophen (Tylenol Tab) 650 mg Q6H PRN PO PAIN LEVEL 1-3 OR FEVER Last administered on 11/10/17 12:45; Admin Dose 650 MG; Start 11/08/17 at 02:30 Docusate Sodium (Colace) 100 mg Q12H PRN PO CONSTIPATION; Start 11/08/17 at 02 :30 Bisacodyl (Dulcolax) 5 mg DAILY PRN PO CONSTIPATION; Start 11/08/17 at 02:30 Lamotrigine (Lamictal) 225 mg QHS PO Last administered on 11/14/17 21:02; Admin Dose 225 MG; Start 11/08/17 at 21:00 Promethazine HCl/ Codeine (Phenergan/ Codeine) 5 ml Q4H PRN PO COUGH Last administered on 11/14/17 13:18; Admin Dose 5 ML; Start 11/08/17 at 18:00 Salmeterol Xinafoate/ Fluticasone (Advair 250/50 Diskus) 1 inh BID INH Last administered on 11/16/17 10:40; Admin Dose 1 INH; Start 11/09/17 at 12:30 Metoprolol Tartrate (Lopressor) 5 mg Q4 PRN IV HR>110 Hold SBP<100 Last administered on 11/14/17 18:38; Admin Dose 5 MG; Start 11/10/17 at 15:00 Atenolol (Tenormin) 50 mg BID PO Last administered on 11/16/17 08:57; Admin Dose 50 MG; Start 11/11/17 at 21:00 Montelukast Sodium (Singulair) 10 mg HS PO Last administered on 11/15/17 21: 19; Admin Dose 10 MG; Start 11/13/17 at 21:00 Diltiazem HCl (Cardizem Cd) 240 mg DAILY PO Last administered on 11/16/17 08: 57; Admin Dose 240 MG; Start 11/14/17 at 10:30 Acetaminophen/ Hydrocodone Bitart (Branch (5/325)) 1 tab Q4H PRN PO pain Last administered on 11/16/17 06:55; Admin Dose 1 TAB; Start 11/15/17 at 12:30 Prednisone (Prednisone) 20 mg DAILY PO Last administered on 11/16/17 08:57; Admin Dose 20 MG; Start 11/16/17 at 09:00 Amiodarone HCl (Cordarone) 400 mg BID PO Last administered on 11/16/17 08:58 ; Admin Dose 400 MG; Start 11/15/17 at 21:00 Apixaban (Eliquis) 5 mg BID PO Last administered on 11/16/17 08:57; Admin Dose 5 MG; Start 11/15/17 at 21:00 ANKITA GUTIERREZ MD Nov 16, 2017 11:38
--- NOTE | 2017-11-16 11:46 | PN ---
Date/Time of Note Date/Time of Note DATE: 11/16/17 TIME: 11:44 Assessment/Plan VTE Prophylaxis VTE Prophylaxis Intervention: other (Eliquis) Lines/Catheters IV [facility] [place] Assessment/Plan Chief Complaint/Hosp Course This is a 52-year-old male who comes in today complaining of shortness of breath and cough for the last 4 days who was noted asthma exacerbation and atrial fibrillation with rapid ventricular rate. 1. Atrial fibrillation with RVR Status: Acute. Remarks: Heart rate has been stable over the past 24 hours. -Cardiology on board. On beta-blockers, Cardizem and anticoagulation with Eliquis. -Case management for arranging outpatient oral anticoagulation with insurance authorization. 2. Essential hypertension Status: Chronic. Remarks: Stable -Continue antihypertensives. 3. Asthma. Status: Chronic. Remarks: Stable. -Continue current management. Taper off steroids. 4. Dyslipidemia. Status: Chronic. Remarks: Stable. -Continue statin. 5. 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 Status: Chronic. Remarks: Not relieved by current regimen. -Continue low-dose Minto as needed. DVT prophylaxis: Eliquis. Discharge planning once Eliquis authorization is approved. Patient was seen in collaboration with Problems: Cont'd Hospitalization Reason: Patient medically cleared. Needs approval for Eliquis. Subjective 24 Hr Interval Summary Free Text/Dictation Patient with excellent progress. He was ambulated in the unit without any reported chest pain, palpitation, or rapid heartbeat. Heart rate has been stable over the past 24 hours. Exam/Review of Systems Vital Signs Vitals Vital Signs Date Time Temp Pulse Resp B/P Pulse Ox O2 Delivery O2 Flow Rate FiO2 11/16/17 09:16 80 20 97 21 11/16/17 07:12 97.3 118/57 11/15/17 04:00 Room Air 11/13/17 08:00 2.0 Intake and Output 11/15/17 11/15/17 11/16/17 14:59 22:59 06:59 Intake Total 1720 ml 750 ml Balance 1720 ml 750 ml Exam General: Well developed,adequately built, not in any acute distress . HEENT: Normocephalic, Atraumatic, No laceration or hematoma; Eyes: PEERL, Conjunctiva clear, Anicteric sclera Neck: Supple without any lymphadenopathy, nontender, no JVD, no carotid bruits, trachea midline, no thyromegaly Cardiac: S1, S2 auscultated, Irregular rhythm and rate, no mumurs or gallop Pulmonary: Normal respiratory effort. Chest clear to auscultation bilaterally, no adventitious breath sounds GI: Abdomen normal to inspection. Soft, non tender, non- distended, no masses, no rebound tenderness or guarding. Bowel sounds active on all four quadrants Genitourinary: Deferred Extremities: No cyanosis, clubbing, or edema. Pulses [2+] bilaterally. Full ROM on all four extremities. No focal weakness appreciated. Neurologic: Alert to person, place, time, and situation. Affect appropriate, intact sensation. Skin: Clean,dry, and intact. No ecchymosis, no rashes, or lesions Results Result Diagram: 11/16/17 0607 11/16/17 0607 Results 24 hrs Laboratory Tests Test 11/16/17 06:07 White Blood Count 9.7 # Red Blood Count 4.63 L Hemoglobin 13.7 L Hematocrit 40.5 L Mean Corpuscular Volume 87.5 Mean Corpuscular Hemoglobin 29.6 Mean Corpuscular Hemoglobin Concent 33.8 Red Cell Distribution Width 12.3 Platelet Count 265 # Mean Platelet Volume 9.7 Neutrophils % 51.4 Lymphocytes % 36.4 Monocytes % 9.2 Eosinophils % 1.0 Basophils % 0.4 Nucleated Red Blood Cells % 0.0 Neutrophils # 5.0 Lymphocytes # 3.5 H Monocytes # 0.9 Eosinophils # 0.1 Basophils # 0.0 Nucleated Red Blood Cells # 0.0 Sodium Level 139 Potassium Level 3.8 Chloride Level 100 Carbon Dioxide Level 32 H Anion Gap 11 Blood Urea Nitrogen 15 Creatinine 0.80 Glucose Level 96 Calcium Level 9.1 Magnesium Level 2.3 Medications Medications Current Medications Ondansetron HCl (Zofran Tab) 4 mg Q6H PRN PO NAUSEA AND/OR VOMITING; Start at 02:30 Nitroglycerin (Nitroglycerin (Sl Tab) 0.4 Mg) 1 tab Q5M PRN SL CHEST PAIN Last administered on 11/08/17t 23:57; Admin Dose 1 TAB; Start 11/08/17 at 02:30 Acetaminophen (Tylenol Tab) 650 mg Q6H PRN PO PAIN LEVEL 1-3 OR FEVER Last administered on 11/10/17 12:45; Admin Dose 650 MG; Start 11/08/17 at 02:30 Docusate Sodium (Colace) 100 mg Q12H PRN PO CONSTIPATION; Start 11/08/17 at 02 :30 Bisacodyl (Dulcolax) 5 mg DAILY PRN PO CONSTIPATION; Start 11/08/17 at 02:30 Lamotrigine (Lamictal) 225 mg QHS PO Last administered on 11/14/17 21:02; Admin Dose 225 MG; Start 11/08/17 at 21:00 Promethazine HCl/ Codeine (Phenergan/ Codeine) 5 ml Q4H PRN PO COUGH Last administered on 11/14/17 13:18; Admin Dose 5 ML; Start 11/08/17 at 18:00 Salmeterol Xinafoate/ Fluticasone (Advair 250/50 Diskus) 1 inh BID INH Last administered on 11/16/17 10:40; Admin Dose 1 INH; Start 11/09/17 at 12:30 Metoprolol Tartrate (Lopressor) 5 mg Q4 PRN IV HR>110 Hold SBP<100 Last administered on 11/14/17 18:38; Admin Dose 5 MG; Start 11/10/17 at 15:00 Atenolol (Tenormin) 50 mg BID PO Last administered on 11/16/17 08:57; Admin Dose 50 MG; Start 11/11/17 at 21:00 Montelukast Sodium (Singulair) 10 mg HS PO Last administered on 11/15/17 21: 19; Admin Dose 10 MG; Start 11/13/17 at 21:00 Diltiazem HCl (Cardizem Cd) 240 mg DAILY PO Last administered on 11/16/17 08: 57; Admin Dose 240 MG; Start 11/14/17 at 10:30 Acetaminophen/ Hydrocodone Bitart (Minto (5/325)) 1 tab Q4H PRN PO pain Last administered on 11/16/17 06:55; Admin Dose 1 TAB; Start 11/15/17 at 12:30 Prednisone (Prednisone) 20 mg DAILY PO Last administered on 11/16/17 08:57; Admin Dose 20 MG; Start 11/16/17 at 09:00 Amiodarone HCl (Cordarone) 400 mg BID PO Last administered on 11/16/17 08:58 ; Admin Dose 400 MG; Start 11/15/17 at 21:00 Apixaban (Eliquis) 5 mg BID PO Last administered on 11/16/17 08:57; Admin Dose 5 MG; Start 11/15/17 at 21:00 ROSANNA MEDINA NP Nov 16, 2017 11:46
--- NOTE | 2017-11-16 11:53 | PDOCDIS ---
Discharge Instructions CONDITION Patient Condition: Stable HOME CARE INSTRUCTIONS: Special Diet: low cholesterol, low fat FOLLOW UP/APPOINTMENTS Follow-up Plan 1.Follow up with primary care physician in 1 week-needs outpatient cardiology referral. If you don't have one please let someone know, we can give you resources that may help you pick one. You may also call your insurance company to assign one to you. Review your medication list with your nurse before leaving and if you need new prescriptions please let your nurse know. I may have made changes to your home medications or given you new prescriptions, please let your primary doctor know as well. Stay compliant with your medications and report any side effects to your PCP or pharmacist. Return to the ER if you have any concerns and cannot reach your doctors or call your insurance company, they usually have a nurse that can help you. 2. Call 911 or go to the nearest emergency room if experiencing loss of consciousness, dizziness, chest pain, shortness of breath, vomiting/abdominal pain, speech difficulties, motor weakness or any unusual symptoms. ROSANNA MEDINA NP Nov 16, 2017 11:53
[2017-11-16] MEDS ORDERED: DILT240C79 PO (11:57)
[2017-11-16] MEDS ORDERED: MONT10TA24 PO (11:57)
[2017-11-16] MEDS ORDERED: PRED20TA PO (11:57)
[2017-11-16] MEDS ORDERED: AMIO200T2 PO (11:57)
[2017-11-16] MEDS ORDERED: ADV25050 INH (11:57)
[2017-11-16] MEDS ORDERED: APIX5TAB PO (11:57)
[2017-11-16] MEDS ORDERED: ATEN-51 PO (11:57)
[2017-11-16] MEDS ORDERED: HYDR-906 PO (11:58)
--- NOTE | 2017-11-16 12:12 | DS ---
Date/Time of Note Date/Time of Note DATE: 11/16/17 TIME: 12:06 Discharge Summary Admission/Discharge Info Admit Date/Time Nov 08, 2017 at 01:52 Discharge Date/Time Discharge Diagnosis 1. Atrial fibrillation with RVR. Stable 2. Essential hypertension 3. Asthma. 4. Dyslipidemia. 5. 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 Patient Condition: Stable Consults , cardiology Procedures 11/07/2017. Chest x-ray. No acute findings. 11/08/2017. 2D echocardiogram. Conclusions 1. Normal left ventricular systolic function. Normal left ventricular cavity size. Left ventricular wall thickness upper limits of normal. Ejection fraction is visually estimated at 55 %. Abnormal Diastolic Function. 2. There is mild enlargement of left atrium. 3. Normal appearance of the mitral valve. There is trace to mild mitral valve regurgitation. 4. Normal appearance of the tricuspid valve. Estimated peak PA systolic pressure 30 mmHg. There is trace tricuspid regurgitation. 11/08/2017. 12-lead EKG. Atrial fibrillation with rapid ventricular response with premature ventricular or aberrantly conducted complexes Hospital Course This is a 52-year-old male with a past medical history of essential hypertension , asthma, dyslipidemia, chronic back pain secondary to trauma, presented to the emergency room with shortness of breath for a 4 day duration who was noted with asthma exacerbation and atrial fibrillation with rapid ventricular rate and was admitted for further evaluation. Patient had cardiology evaluation. He was monitored in our telemetry unit. Patient was also given IV Cardizem. He was ruled out for ACS. He was then transitioned to oral beta-blockers, Cardizem, and anticoagulation with therapeutic Lovenox which was then transitioned to Eliquis 5 mg p.o. twice daily. Patient's blood pressure and HR remained stable. Asthma was managed with inhalers and steroids along with Leukotriene modifiers. Patient was also continued on statin for dyslipidemia. For chronic back pain, he was also treated with Frederick with improvement in symptoms. At this time, patient is feeling back to baseline. His labs and vital signs remained stable. Patient was ambulated in the unit without any chest pain, palpitation or irregularity in the heart rate. Monitor showed EKG in atrial fibrillation with stable ventricular rate. At this time, patient is medically cleared for discharge with outpatient cardiology evaluation per cardiology standpoint. He was recommended to continue Eliquis 5 mg p.o. twice daily which I had requested our embedded case manager authorized from his insurance. Patient was also given prescriptions for newly added or changed medication for better outpatient A. fib and blood pressure management. Patient was given instruction on all these changes and he verbalized understanding. Disposition: Patient will be discharged home once Shanelle is authorized. Approximately 60 minutes was spent in coordinating the discharge on this patient. Patient was seen in collaboration with . Home Meds Active Scripts Prednisone* (Prednisone*) 20 Mg Tab, 20 MG PO DAILY for 4 Days, #4 TAB Prednisone 20 mg 1 more dose. Stop on 11/17/2017. Then prednisone 10 mg 3 day course. Last dose 11/20/2017. Prov:ROSANNA MEDINA V. CORPORATE COUNSELOR 11/16/17 Salmeterol Xinaf/Fluticasone* (Advair*) 250-50 Diskus Inhaler, 1 INH INH BID, # 1 INHALER Prov:ROSANNA MEDINA NP 11/16/17 Montelukast Sodium* (Montelukast Sodium*) 10 Mg Tablet, 10 MG PO HS, #30 TAB Prov:ROSANNA MEDINA V. CORPORATE COUNSELOR 11/16/17 Diltiazem Hcl* (Cardizem CD*) 240 Mg Cap.sr.24h, 240 MG PO DAILY, #30 TAB Prov:ROSANNA MEDINA V. CORPORATE COUNSELOR 11/16/17 Atenolol* (Atenolol*) 25 Mg Tablet, 50 MG PO BID, #60 TAB Prov:ROSANNA MEDINA V. CORPORATE COUNSELOR 11/16/17 Amiodarone Hcl* (Amiodarone Hcl*) 200 Mg Tablet, 400 MG PO BID for 30 Days, #60 TAB Prov:ROSANNA MEDINA V. CORPORATE COUNSELOR 11/16/17 Reported Medications Albuterol Sulfate* (Ventolin HFA*) 18 Gm Hfa.aer.ad, 2 PUFF INHALATION Q6H Y for SHORTNESS OF BREATH, #1 INHALER 11/08/17 Amlodipine Besylate/Benazepril (Amlodipine-Benazepril 5-20 mg) 1 Each Capsule, 1 EACH PO DAILY, CAP 11/08/17 Meloxicam* (Mobic*) 15 Mg Tablet, 15 MG PO DAILY, #30 TAB 11/08/17 Lamotrigine* (Lamotrigine*) 100 Mg Tablet, 225 MG PO QHS, TAB 11/08/17 Hydrocodone/Acetaminophen (Frederick 10-325 Tablet) 1 Each Tablet, 1 EACH PO BID Y for PAIN, TAB 11/08/17 Carisoprodol* (Carisoprodol*) 350 Mg Tablet, 350 MG PO BID Y for MUSCLE SPASMS, TAB 11/08/17 Follow-up Plan 1.Follow up with primary care physician in 1 week-needs outpatient cardiology referral. If you don't have one please let someone know, we can give you resources that may help you pick one. You may also call your insurance company to assign one to you. Review your medication list with your nurse before leaving and if you need new prescriptions please let your nurse know. I may have made changes to your home medications or given you new prescriptions, please let your primary doctor know as well. Stay compliant with your medications and report any side effects to your PCP or pharmacist. Return to the ER if you have any concerns and cannot reach your doctors or call your insurance company, they usually have a nurse that can help you. 2. Call 911 or go to the nearest emergency room if experiencing loss of consciousness, dizziness, chest pain, shortness of breath, vomiting/abdominal pain, speech difficulties, motor weakness or any unusual symptoms. Primary Care Provider Melinda Castanon MD Pending Labs Laboratory Tests Test 11/16/17 06:07 White Blood Count 9.710^3/ul (4.8-10.8) Red Blood Count 4.6310^6/ul (4.70-6.10) Hemoglobin 13.7g/dl (14.0-18.0) Hematocrit 40.5% (42.0-52.0) Mean Corpuscular Volume 87.5fl (82.0-101.0) Mean Corpuscular Hemoglobin 29.6pg (29.0-33.0) Mean Corpuscular Hemoglobin Concent 33.8g/dl (32.0-37.0) Red Cell Distribution Width 12.3% (11.5-14.5) Platelet Count 97826^3/UL (140-415) Mean Platelet Volume 9.7fl (7.4-10.4) Neutrophils % 51.4% (39.0-77.0) Lymphocytes % 36.4% (15.0-51.0) Monocytes % 9.2% (0.0-11.0) Eosinophils % 1.0% (0.0-7.0) Basophils % 0.4% (0.0-2.0) Nucleated Red Blood Cells % 0.0/100WBC (0.0-0.0) Neutrophils # 5.010^3/ul (1.6-7.5) Lymphocytes # 3.510^3/ul (0.8-2.9) Monocytes # 0.910^3/ul (0.3-0.9) Eosinophils # 0.110^3/ul (0.0-0.5) Basophils # 0.010^3/ul (0.0-0.1) Nucleated Red Blood Cells # 0.010^3/ul (0.0-0.0) Sodium Level 139mmol/L (135-144) Potassium Level 3.8mmol/L (3.5-5.1) Chloride Level 100mmol/L (97-110) Carbon Dioxide Level 32mmol/L (21-31) Anion Gap 11 (8-16) Blood Urea Nitrogen 15mg/dl (7-20) Creatinine 0.80mg/dl (0.61-1.24) Glucose Level 96mg/dl (70-220) Calcium Level 9.1mg/dl (8.4-10.2) Magnesium Level 2.3mg/dl (1.7-2.5) ROSANNA MEDINA NP Nov 16, 2017 12:12
== END 2017-11-16 16:56 | disposition home or self-care (01) | DRG 309 ==
LOC: E/R 23:04 → TEL 11-08 01:52
PROVIDERS: ADMIT Family Medicine; ATTEND Family Medicine
DX: I48.91 Unspecified atrial fibrillation (principal); J45.41 Moderate persistent asthma with (acute) exacerbation; I11.9 Hypertensive heart disease without heart failure; I10 Essential (primary) hypertension; J06.9 Acute upper respiratory infection, unspecified; E78.5 Hyperlipidemia, unspecified; M54.5 Low back pain; Z87.828 Personal history of other (healed) physical injury and trauma; G89.4 Chronic pain syndrome
CPT/HCPCS: 36415; 71010; 80048; 80053; 80061; 80162; 81001; 82550; 82553; 83036; 83605; 83735; 84443; 84484; 85025; 85610; 85730; 86803; 87040; 87045; 87086; 87400; 90686; 93005; 93306; 94640; 94644; 94664; 96372; 96374; 96375; 97116; 97162; 97530; J1650; J1885; J2270; J2543; J2930; J7030; J7512

== ENCOUNTER 2018-01-15 14:29 | Emergency (ER) | END 2018-01-15 19:59 | disposition home or self-care (01) ==

== ENCOUNTER 2018-03-24 06:31 | Day surgery (SDC) | END 2018-03-24 14:32 | disposition home or self-care (01) ==

== ENCOUNTER 2018-12-09 22:15 | Observation (INO) | payer BC ==
[~2018-12-09] VITALS: Ht 185.4 cm; Wt 147.1 kg
[~2018-12-09 22:15] MED LIST changes: +ALBU18HF INHALATION; +AMIO200T4 PO; +APIX5TAB PO; +ATEN-51 PO; +ATEN50TA PO; -CARI350T29; +CARI350T29 PO; +CEPH-443 PO; +DILT240C79 PO; +ESCI10TA PO; -ESOM10SU; +FAMO40TA5 PO; -FLUT1DIS22; +HYDR-4011 PO; -IBUP-727; +LAMO100T PO; -LAMO100T83; +MELO15TA30 PO; -MONT10TA21; +NITR0.4T39 SL; -ZOLP10TA; -[UNRECOGNIZED DRUG - CODE]
--- NOTE | 2018-12-09 23:47 | ERD ---
ER Documentation Chief Complaint Chief Complaint CP HPI The patient is a 53-year-old male, presenting to the ER because of substernal chest pain/dizziness/shortness of breath around 1 PM while he was working in the yard for 4 hours. He then took a nitroglycerin with good response. He had similar symptom previously October 2017 when he was found to have atrial fibrillation. He then felt nauseous and vomited multiple times initially food and phlegm, denies syncope, near syncope, neck pain, abdominal pain, dysuria. He does not smoke nor drink Past medical history: Asthma, atrial fibrillation, hypertension, dyslipidemia, chronic low back pain, CAD Past surgical history: Cardiac angiogram in March 2018 with 2 stent ROS All systems reviewed and are negative except as per history of present illness. Medications Home Meds Active Scripts Cephalexin* (Keflex*) 500 Mg Capsule, 500 MG PO QID for 5 Days, CAP Prov:KRISTA PASCUAL MD 01/15/18 Hydrocodone/Acetaminophen ([place] 5-325 Tablet) 1 Each Tablet, 1 EACH PO Q6H for PAIN, #30 TAB Prov:ROSANNA MEDINA NP 11/16/17 Reported Medications Nitroglycerin* (Nitrostat*) 0.4 Mg Tab.subl, 0.4 MG SL Q5MIN PRN for CHEST PAIN, BOTTLE 03/24/18 Diltiazem Hcl* (Cardizem CD*) 240 Mg Cap.sr.24h, 240 MG PO DAILY, #30 CAP 01/15/18 Escitalopram Oxalate* (Lexapro*) 10 Mg Tablet, 10 MG PO DAILY, #30 TAB 01/15/18 Apixaban* (Eliquis*) 5 Mg Tablet, 5 MG PO BID, TAB 01/15/18 Amiodarone Hcl* (Amiodarone Hcl*) 200 Mg Tablet, 200 MG PO DAILY, #30 TAB 01/15/18 Famotidine* (Famotidine*) 40 Mg Tablet, 40 MG PO HS, #30 TAB 01/15/18 Atenolol* (Atenolol*) 50 Mg Tablet, 50 MG PO QAM, #30 TAB 01/15/18 Atenolol* (Atenolol*) 25 Mg Tablet, 75 MG PO QPM, #90 TAB 01/15/18 Albuterol Sulfate* (Ventolin HFA*) 18 Gm Hfa.aer.ad, 2 PUFF INHALATION Q6H PRN for SHORTNESS OF BREATH, #1 INHALER 11/08/17 Meloxicam* (Mobic*) 15 Mg Tablet, 15 MG PO DAILY, #30 TAB 11/08/17 Lamotrigine* (Lamotrigine*) 100 Mg Tablet, 225 MG PO QHS, TAB 11/08/17 Carisoprodol* (Carisoprodol*) 350 Mg Tablet, 350 MG PO BID PRN for MUSCLE SPASMS, TAB 11/08/17 Allergies Allergies: Coded Allergies: No Known Drug Allergy (Verified Allergy, Mild, 11/08/17) PMhx/Soc History of Surgery: Yes (eye) Anesthesia Reaction: No Hx Neurological Disorder: Yes (cr artritiis) Hx Respiratory Disorders: Yes (astma) Hx Cardiac Disorders: Yes (a fib, chest pain, ) Hx Psychiatric Problems: No Hx Miscellaneous Medical Probl: No Hx Alcohol Use: Yes (socilay) Hx Substance Use: Yes (marijuana in past) Hx Tobacco Use: Yes Physical Exam Vitals Vital Signs Date Temp Pulse Resp B/P (MAP) Pulse Ox O2 O2 Flow FiO2 Time Delivery Rate 12/09/18 100.4 84 18 129/75 95 22:23 (93) Physical Exam Const: No acute distress. Head: Atraumatic. Eyes: Normal Conjunctiva. ENT: Normal External Ears, Nose and Mouth. Neck: Full range of motion. No meningismus. Resp: Clear to auscultation bilaterally. Cardio: Regular rate and rhythm. Abd: Soft, non distended, normal bowel sounds, non tender. Skin: No petechiae or rashes. Back: No midline or flank tenderness. Ext: No cyanosis, or edema. Neur: Awake and alert. No focal deficit Psych: Normal Mood and Affect. Result Diagram: 12/09/18 2348 12/09/18 2348 Results 24 hrs Laboratory Tests Test 12/09/18 23:48 12/09/18 23:49 12/09/18 23:54 White Blood Count 14.4 10^3/ul Red Blood Count 4.55 10^6/ul Hemoglobin 13.7 g/dl Hematocrit 41.6 % Mean Corpuscular Volume 91.4 fl Mean Corpuscular Hemoglobin 30.1 pg Mean Corpuscular 32.9 g/dl Hemoglobin Concent Red Cell Distribution Width 12.4 % Platelet Count 212 10^3/UL Mean Platelet Volume 10.4 fl Immature Granulocytes % 0.400 % Neutrophils % 80.7 % Lymphocytes % 7.6 % Monocytes % 10.7 % Eosinophils % 0.2 % Basophils % 0.4 % Nucleated Red Blood Cells % 0.0 /100WBC Immature Granulocytes # 0.060 10^3/ul Neutrophils # 11.6 10^3/ul Lymphocytes # 1.1 10^3/ul Monocytes # 1.5 10^3/ul Eosinophils # 0.0 10^3/ul Basophils # 0.1 10^3/ul Nucleated Red Blood Cells # 0.0 10^3/ul Urine Color YELLOW Urine Clarity SLIGHTLY CLOUDY Urine pH 7.0 Urine Specific [place] 1.020 Urine Ketones NEGATIVE mg/dL Urine Nitrite NEGATIVE mg/dL Urine Bilirubin NEGATIVE mg/dL Urine Urobilinogen NEGATIVE mg/dL Urine Leukocyte Esterase 3+ Merna/ul Urine Microscopic RBC 14 /HPF Urine Microscopic WBC > 182 /HPF Urine Squamous Epithelial Cells FEW /HPF Urine Amorphous Crystals FEW /HPF Urine Bacteria FEW /HPF Urine Hemoglobin 1+ mg/dL Urine Glucose NEGATIVE mg/dL Urine Total Protein NEGATIVE mg/dl Sodium Level 137 mmol/L Potassium Level 4.4 mmol/L Chloride Level 99 mmol/L Carbon Dioxide Level 28 mmol/L Anion Gap 10 Blood Urea Nitrogen 21 mg/dl Creatinine 1.06 mg/dl Est Glomerular Filtrat > 60 mL/min Rate mL/min Glucose Level 123 mg/dl Calcium Level 9.7 mg/dl Total Bilirubin 1.1 mg/dl Direct Bilirubin 0.00 mg/dl Indirect Bilirubin 1.1 mg/dl Aspartate Amino Transf (AST/SGOT) 19 IU/L Alanine 22 IU/L Aminotransferase (ALT/SGPT) Alkaline Phosphatase 90 IU/L Troponin I < 0.012 ng/ml Total Protein 7.9 g/dl Albumin 4.6 g/dl Globulin 3.30 g/dl Albumin/Globulin Ratio 1.39 Amylase Level 48 U/L Lipase 20 U/L Prothrombin Time 14.2 Sec Prothrombin Time Ratio 1.1 INR International 1.09 Normalized Ratio Activated Partial Thromboplast 28.1 Sec Time B-Type Natriuretic Peptide 382 PG/ML Current Medications Medications Dose Sig/[place] Start Time Status Last (Trade) Ordered Route PRN Stop Time Admin Dose Reason Admin Ceftriaxone 50 ml @ ONCE ONCE 12/10/18 UNV Sodium 100 mls/hr IVPB 02:00 12/10/18 02:29 Aspirin 162 mg ONCE ONCE 12/10/18 UNV (Aspirin) PO 02:00 12/10/18 02:01 Procedures/[place] [id number] Radiology Main Line: [phone] DIAGNOSTIC IMAGING REPORT Patient: CHEO DALY : 1965 Age: 53 Sex: M MR #: [id number] DOS: 12/09/18 2333 Ordering MD: LENNY METZGER 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 CLINICAL INDICATION: Chest pain and cardiac palpitations. TECHNIQUE: PA and Lateral views of the chest were obtained. COMPARISON: None. FINDINGS: The cardiomediastinal silhouette is within normal limits. Atherosclerotic calcifications in the mildly tortuous thoracic aorta. Atelectasis is seen at the bilateral anterior lungs on the lateral projection. The lungs are clear. No signs of pleural fluid or pneumothorax are seen. The osseous structures and soft tissues are unremarkable. IMPRESSION: 1. Atelectasis is seen at the bilateral anterior lungs on the lateral projection. 2. Otherwise, no evidence for active cardiopulmonary disease. RPTAT: [facility] Physician Natalya Date Time Electronically viewed and signed by Physician Natalya on 12/10/2018 01:32 RS/ CC: LENNY METZGER [phone] EKG: Read by emergency physician Rate/Rhythm: Normal Sinus Rhythm 73 beats/min QRS, ST, T-waves: No ST elevation, no T inversion, RWA Impression: Abnormal EKG MEDICAL MAKING DECISION: The patient is a 53-year-old male with multiple cardiac risk factor, presenting with acute chest pain that is concerning for acute ACS, acute cystitis. He was treated with aspirin 160 mg p.o. for acute chest pain, Rocephin 1 g IV for acute cystitis with good response. The differential diagnoses considered include but are not limited to acute coronary syndrome, acute myocardial infarction, pericarditis, pulmonary embolism, aortic dissection, pneumonia, pleural effusion, pneumothorax, GERD, chest wall pain. Departure Diagnosis: Primary Impression: Chest pain Additional Impressions: UTI (urinary tract infection) Anemia Condition: Stable Comments I discussed the findings with the patient. I discussed the patient with the hospitalist Dr Fowler at 1:50 am . who was made aware of the lab, the treatment, the patient condition. The patient is admitted to [facility] Disclaimer: Inadvertent spelling and grammatical errors are likely due to EHR/dictation software use and do not reflect on the overall quality of patient care. Also, please note that the electronic time recorded on this note does not necessarily reflect the actual time of the patient encounter. BAIRON LEHMAN MD Dec 09, 2018 23:47
[2018-12-10] VITALS (10 sets, daily range): BP systolic 90–115; BP diastolic 55–69; PULSE 53–82; RESP 18–20; Ht 185.4 cm; Wt 147.1 kg
[2018-12-10] MEDS ORDERED: CEFTRIAXONE 1 GM/50 ML (PMX) 50 ML IVPB ONE (02:00)
[2018-12-10] MEDS ORDERED: ASPIRIN 81 MG TAB PO ONE (02:00)
--- NOTE | 2018-12-10 03:30 | NUR ---
Pt refused admission photos and bed alarm. Pt is alert and oriented x4 and has steady gait.
[2018-12-10] MEDS ORDERED: CARISOPRODOL 350 MG TAB PO PRN (04:30)
[2018-12-10] MEDS ORDERED: NACL 0.9% 3 ML SYG IV SCH (04:30)
[2018-12-10] MEDS ORDERED: ONDANSETRON 4 MG INJ IV PRN (04:30)
[2018-12-10] MEDS ORDERED: ALBUTEROL HFA 8 GM INHALER INH PRN (04:30)
[2018-12-10] MEDS ORDERED: ACETAMINOPHEN 325 MG TAB PO PRN (04:30)
[2018-12-10] MEDS ORDERED: NITROGLYCERIN (SL) 0.4 MG TAB SL PRN (04:30)
--- NOTE | 2018-12-10 06:16 | NUR ---
End of Shift Summary No change in pt condition. See pt assessment and EMAR.
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
[2018-12-10] MEDS: CEFTRIAXONE 1 GM/50 ML (PMX) 50 ML IVPB SCH (08:52)
[2018-12-10] MEDS: MELOXICAM 15 MG TAB PO SCH (08:54)
[2018-12-10] MEDS: APIXABAN 5 MG TABLET PO SCH ×2 (08:55→20:58)
[2018-12-10] MEDS: ATENOLOL 50 MG TAB PO SCH ×2 (08:55→21:00)
[2018-12-10] MEDS: AMIODARONE 200 MG TAB PO SCH (08:55)
[2018-12-10] MEDS: ESCITALOPRAM 10 MG TAB PO SCH (08:55)
[2018-12-10] MEDS: DILTIAZEM (CD) 240 MG CAP PO SCH (08:55)
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
[2018-12-10] MEDS: HYDROCODONE/APAP (5/325) TAB PO PRN ×2 (14:28→22:11)
--- NOTE | 2018-12-10 14:57 | RADRPT ---
Echocardiogram Report Patient Name: CHEO DALY Gender: Male Date: 1965 Study Date: 10-Dec-2018 Billing Machine Operator: Katia Loyd [facility] Location: [id number]-A Ref. Physician: KIMBERLEY MCCRAY Quality: Technically Difficult Study Procedures: Transthoracic echocardiogram with complete 2D, M-Mode, and doppler examination. Indications: Atrial Fibrillation. Chest Pain. Coronary Artery Disease. 2D/M Mode Doppler Measurement Value Normal Ranges Measurement Value Normal Ranges LVIDd 2D 4.4 3.5 - 5.6 cm AV Peak Elvis 1.7 m/sec LVIDs 2D 3.2 2.1 - 4.1 cm AV Peak PG 12.0 mmHg LVPWd 2D 1.3 0.6 - 1.1 cm LVOT Peak Elvis 1.2 m/sec IVSd 2D 1.0 0.6 - 1.1 cm LVOT Peak PG 5.0 mmHg AoR Diam 2D 3.3 2.0 - 3.7 cm MV E Peak Elvis 1.0 m/sec LA/Ao 2D 1 0 - 1 MV A Peak Elvis 0.8 m/sec LA Dimen 2D 4.1 2.3 - 4.0 cm MV E/A 1.4 MV Decel Time 239 msec Lat E` Elvis 0.1 m/sec Lateral E/E` 8.0 Med E` Elvis 0.1 m/sec MV E/A 1.4 Findings Left Ventricle: Normal left ventricular systolic function. Normal left ventricular cavity size. Normal left ventricular wall thickness. Ejection fraction is visually estimated at 55 %. Tissue Doppler/Mitral Doppler indices are within normal limits. Right Ventricle: Normal right ventricular size. Normal right ventricular systolic function. Left Atrium: The left atrium is normal in size. Right Atrium: The right atrium is normal in size. Mitral Valve: Normal appearance of the mitral valve. Trace mitral regurgitation. Aortic Valve: Normal appearance of the aortic valve. No aortic regurgitation. Tricuspid Valve: Normal appearance of the tricuspid valve. Unable to obtain RVSP due to minimal presence of tricuspid regurgitation. No evidence of tricuspid regurgitation. Pericardium: Normal pericardium with no significant pericardial effusion. Aorta: Normal aortic root. IVC: Normal size and normal respiratory collapse consistent with normal right atrial pressure. Conclusions Normal left ventricular systolic function. Normal left ventricular cavity size. Normal left ventricular wall thickness. Ejection fraction is visually estimated at 55 %. Tissue Doppler/Mitral Doppler indices are within normal limits. Normal appearance of the mitral valve. Trace mitral regurgitation. Normal appearance of the tricuspid valve. Unable to obtain RVSP due to minimal presence of tricuspid regurgitation. No evidence of tricuspid regurgitation. Electronically Signed By: Catracho Dickey 10-Dec-2018 14:57:13 -0800 Patient Name: CHEO DALY Study Date: 10-Dec-2018 [id number]
--- NOTE | 2018-12-10 18:30 | NUR ---
EOSS: Patient in stable condition, lying down in bed comfortably without any discomfort, and denying any chest pain. Patient's IV intact in left AC, bus driver/monitor in place. Patient aware that he is to be NPO after midnight for stress test.
[2018-12-10] MEDS ORDERED: FAMOTIDINE 20 MG TAB PO SCH (21:00)
[2018-12-10] MEDS ORDERED: LAMOTRIGINE 100 MG TAB PO SCH (21:00)
[2018-12-10] MEDS ORDERED: GABA300C16 PO (23:22)
[2018-12-11] VITALS (10 sets, daily range): BP systolic 92–116; BP diastolic 51–69; PULSE 52–68; RESP 17–19
[2018-12-11] MEDS ORDERED: GABAPENTIN 300 MG CAP PO SCH
--- NOTE | 2018-12-11 05:35 | NUR ---
EOSS: Pt A&O x 4. VSS. [place] administered X1 for lower back pain. No current s/s of distress, resting in bed comfortably. Hourly rounding performed. Call light within reach; instructed pt to call for assistance as needed. Pt clean and dry; all needs and concerns attended to. Patient maintained as NPO after midnight for stress test today. Will endorse pt to AM RN for continuity of care.
[2018-12-11] MEDS: ATENOLOL 50 MG TAB PO SCH (08:45)
[2018-12-11] MEDS: AMIODARONE 200 MG TAB PO SCH (08:45)
[2018-12-11] MEDS: ESCITALOPRAM 10 MG TAB PO SCH (08:45)
[2018-12-11] MEDS: MELOXICAM 15 MG TAB PO SCH (08:45)
[2018-12-11] MEDS: CEFTRIAXONE 1 GM/50 ML (PMX) 50 ML IVPB SCH (08:46)
[2018-12-11] MEDS: DILTIAZEM (CD) 240 MG CAP PO SCH (08:46)
[2018-12-11] MEDS ORDERED: REGADENOSON 0.4 MG/5 ML SYG ONE (10:02)
--- NOTE | 2018-12-11 11:09 | ECORPT ---
DATE OF SERVICE: 12/11/2018 REFERRING PHYSICIAN: Dr. Pardo. INDICATION: Precordial chest pain, history of coronary artery disease. DESCRIPTION: The patient was brought to the heart station in fasting condition and had successful Jonah iscan injection. It showed nonspecific ST-T changes on his EKG. Blood pressure remained to be stable . The imaging portion will be dictated separately. Dictated By: MAYKEL NEAL MD ML/NTS Conf#: [id number] DID#: [id number] CC: KAE SNYDER MD; KIMBERLEY MCCRAY;*EndCC*
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
--- NOTE | 2018-12-11 12:13 | CONS ---
Date/Time of Note Date/Time of Note DATE: 12/11/18 TIME: 12:12 Assessment/Plan Assessment/Plan Assessment/Plan STRES TEST DONE - WILL AWAIT RESULTS Result Diagram: 12/11/18 0531 12/11/18 0531 Results 24hrs Laboratory Tests Test 12/11/18 05:31 White Blood Count 8.7 # Red Blood Count 4.18 L Hemoglobin 12.7 L Hematocrit 38.9 L Mean Corpuscular Volume 93.1 Mean Corpuscular Hemoglobin 30.4 Mean Corpuscular Hemoglobin Concent 32.6 Red Cell Distribution Width 12.5 Platelet Count 145 Mean Platelet Volume 10.4 Immature Granulocytes % 0.200 Neutrophils % 73.1 Lymphocytes % 15.7 Monocytes % 9.2 Eosinophils % 1.3 Basophils % 0.5 Nucleated Red Blood Cells % 0.0 Immature Granulocytes # 0.020 Neutrophils # 6.4 Lymphocytes # 1.4 Monocytes # 0.8 Eosinophils # 0.1 Basophils # 0.0 Nucleated Red Blood Cells # 0.0 Sodium Level 138 Potassium Level 3.7 Chloride Level 101 Carbon Dioxide Level 29 Anion Gap 8 Blood Urea Nitrogen 15 Creatinine 0.79 Est Glomerular Filtrat Rate mL/min > 60 Glucose Level 115 Calcium Level 8.5 Phosphorus Level 3.4 Magnesium Level 2.3 Consultation Date/Type/Reason Admit Date/Time Dec 10, 2018 at 01:49 Initial Consult Date Exam/Review of Systems Vital Signs Vitals Vital Signs Date Temp Pulse Resp B/P (MAP) Pulse Ox O2 O2 Flow FiO2 Time Delivery Rate 12/11/18 60 08:33 12/11/18 98.2 18 116/69 97 07:43 (85) 12/10/18 Room Air 02:33 Intake and Output 12/10/18 12/10/18 12/11/18 1515:00 23:00 07:00 IntakeIntake Total 50 ml 750 ml BalanceBalance 50 ml 750 ml Medications Medications Current Medications IV Flush (NS 3 ml) 3 ml PER PROTOCOL IV ; Start 12/10/18 at 04:30 Ondansetron HCl (Zofran Inj) 4 mg Q6H PRN IV NAUSEA AND/OR VOMITING; Start 12/10/18 at 04:30 Nitroglycerin (Nitroglycerin (Sl Tab) 0.4 Mg) 1 tab Q5M PRN SL CHEST PAIN; Start 12/10/18 at 04:30 Acetaminophen (Tylenol Tab) 650 mg Q6H PRN PO PAIN LEVEL 1-3 OR FEVER; Start 12/10/18 at 04:30 Acetaminophen/ Hydrocodone Bitart ([place] (5/325)) 1 tab Q6H PRN PO PAIN LEVEL 4-6 Last administered on 12/10/18 22:11; Admin Dose 1 TAB; Start 12/10/18 at 04:30 Albuterol (Ventolin Hfa) 2 puff Q6H RESP THERAPY PRN INH SHORTNESS OF BREATH Last administered on 12/10/18 22:04; Admin Dose 2 PUFF; Start 12/10/18 at 04:30 Amiodarone HCl (Cordarone) 200 mg DAILY PO Last administered on 12/11/18 08:45; Admin Dose 200 MG; Start 12/10/18 at 09:00 Apixaban (Eliquis) 5 mg BID PO Last administered on 12/10/18 20:58; Admin Dose 5 MG; Start 12/10/18 at 09:00 Atenolol (Tenormin) 50 mg BID PO Last administered on 12/11/18 08:45; Admin Dose 50 MG; Start 12/10/18 at 09:00 Carisoprodol (Soma) 350 mg BID PRN PO MUSCLE SPASMS Last administered on 12/10/18 22:31; Admin Dose 350 MG; Start 12/10/18 at 04:30 Diltiazem HCl (Cardizem Cd) 240 mg DAILY PO Last administered on 12/11/18 08:46; Admin Dose 240 MG; Start 12/10/18 at 09:00 Escitalopram Oxalate (Lexapro) 10 mg DAILY PO Last administered on 12/11/18 08:45; Admin Dose 10 MG; Start 12/10/18 at 09:00 Famotidine (Pepcid) 40 mg HS PO Last administered on 12/10/18 20:59; Admin Dose 40 MG; Start 12/10/18 at 21:00 Lamotrigine (Lamictal) 225 mg QHS PO Last administered on 12/10/18 20:58; Admin Dose 225 MG; Start 12/10/18 at 21:00 Meloxicam (Mobic) 15 mg DAILY PO Last administered on 12/11/18 08:45; Admin Dose 15 MG; Start 12/10/18 at 09:00 Ceftriaxone Sodium 50 ml @ 100 mls/hr DAILY IVPB Last administered on 12/11/18at 08:46; Admin Dose 100 MLS/HR; Start 12/10/18 at 09:00 Gabapentin (Neurontin) 300 mg QHS PO Last administered on 12/10/18at 23:52; Adm in Dose 300 MG; Start 12/11/18 at 00:00 MAYKEL NEAL MD Dec 11, 2018 12:13
[2018-12-11] MEDS: APIXABAN 5 MG TABLET PO SCH (12:15)
[2018-12-11] MEDS: HYDROCODONE/APAP (5/325) TAB PO PRN (12:53)
--- NOTE | 2018-12-11 14:59 | NUR ---
0945 Patient off unit to nuclear medicine for stress test. 1200 Patient back on unit, telemetry monitoring on.
--- NOTE | 2018-12-11 16:39 | PDOCDIS ---
Discharge Instructions CONDITION [id number] Patient Condition: [id number] Stable HOME CARE INSTRUCTIONS: [id number] Diet Instructions: Vigof0y Low Fat /Cholesterol ACTIVITY: [id number] Activity Restrictions: Erydh0o Slowly Increase Activity Rest between Activity Avoid heavy lifting FOLLOW UP/APPOINTMENTS Follow-up Plan Take you meds. See u doctor in 1-2 weeks. KIMBERLEY MCCRAY Dec 11, 2018 16:39
[2018-12-11] MEDS ORDERED: LEVO750T8 PO (16:40)
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
--- NOTE | 2018-12-11 17:10 | NUR ---
Patient cleared for discharge home, vitals stable, denies pain, no complaints, denies chest pain, nausea, vomiting, chills, fever, weakness, diaphoresis. A/ox4, on room air saturating 96%, no shortness of breath or cough, bowel movement x1 yesterday, continent x2, skin intact, ambulatory and independent, IV discontinued, computer systems integrator discontinued and returned to nursing station, prescription sent to preferred pharmacy, discharge packet reviewed and signed, patient escorted off unit by spouse.
--- NOTE | 2018-12-12 09:00 | CONS ---
DATE OF ADMISSION: 12/10/2018 DATE OF CONSULTATION: 12/10/2018 TYPE OF CONSULTATION: Cardiology. REFERRING PHYSICIAN: Freddie Moraes MD REASON FOR EVALUATION: Precordial chest pain, history of coronary artery disease. HISTORY OF PRESENT ILLNESS: Mr. Hernandez is a 53-year-old gentleman with prior history of hypertension , dyslipidemia and left heart catheterization in 03/2018 who comes to the hospital now for evaluation of precordial chest pain. The patient said that he was working in the yard when he felt precordial chest discomfort. The patient said that his symptoms resolved now and he is currently chest pain rory e. The patient had a left heart catheterization with Dr. Marc in 03/2018. At that point, he had some nonspecific small vessel disease and, at that time, he also had a positive stress test, somewhat of a difficult situation. I think the progression of coronary artery disease is possible and I thin k it would be reasonable to stratify the patient with a stress test while he is in the hospital now. PAST MEDICAL HISTORY: Hypertension, dyslipidemia, history of heart disease, history of self-reported stenting but per reports available here, there was no stent deployed, history of hypertension, histo ry of familial heart disease. ALLERGIES: NO KNOWN DRUG ALLERGIES. SOCIAL HISTORY: The patient does not smoke, does not drink, does not use drugs. FAMILY HISTORY: Negative for sudden cardiac or premature coronary artery disease. MEDICATIONS: 1. Pepcid. 2. ____. 3. Amiodarone. 4. Apixaban 5 mg p.o. b.i.d. 5. Atenolol 50 mg p.o. b.i.d. 6. Meclizine. 7. Sublingual nitroglycerin. 8. ____. REVIEW OF SYSTEMS: CONSTITUTIONAL: No fevers, no chills. HEENT: No change in vision or hearing. CARDIAC: No chest pain reported now, but chest pain ____ especially at rest. RESPIRATORY: Short of breath. GASTROINTESTINAL: No nausea, vomiting, diarrhea or constipation. GENITOURINARY: No dysuria, hematuria or difficult urination. NEUROLOGIC: No focal neurologic deficits. PSYCHIATRIC: No known history of psychiatric disease. DIAGNOSTIC DATA: On ECG, the patient is in sinus rhythm at the rate of 80s with some nonspecific ST- T changes. ASSESSMENT AND PLAN: 1. Precordial chest pain. The patient has precordial chest pain, etiology is unclear. The patient has said he had stenting prior but per reports here, the patient did not have a stent, just a left he art catheterization. I think, for now, we will continue to follow. We will stratify with a stress t est. 2. Secondary hypercoagulable state. The patient is on Eliquis. Per report, he was in atrial fibril lation, in sinus rhythm now. Continue to monitor closely. 3. Obesity. Weight loss is advised. 4. Atrial fibrillation, paroxysmal. The patient is on amiodarone. We will follow for now. 5. Abnormal EKG, nonspecific ST changes. No evidence of ACS or ischemia. Stress test to follow. I would like to thank Dr. Moraes for referring this patient for my evaluation. Dictated By: MAYKEL NEAL MD ML/NTS Conf#: [id number] DID#: [id number]
== END 2018-12-11 17:14 | disposition home or self-care (01) ==
LOC: FTE 22:15 → 6WM 12-10 01:49
PROVIDERS: ADMIT Internal Medicine; ATTEND Hospitalist
DX: A41.9 Sepsis, unspecified organism (principal); R07.9 Chest pain, unspecified; I48.91 Unspecified atrial fibrillation; E66.01 Morbid (severe) obesity due to excess calories; Z68.41 Body mass index [BMI] 40.0-44.9, adult
CPT/HCPCS: 71046; 78452; 80048; 80053; 80061; 81001; 82150; 82550; 82553; 83036; 83690; 83735; 83880; 84100; 84443; 84484; 85025; 85610; 85730; 87040; 87086; 87400; 93005; 93017; 93306; 99285; A9500; A9505; J0696; J2785; Z7500; Z7610; 99217; G0378